=== PATIENT | female | born 1945 | race Two or more races ===

== ENCOUNTER 2023-06-09 15:18 | Observation (INO) | payer OTHER, SELFPAY ==
--- NOTE | ~2023-06-09 | XR_ITS ---
EXAMINATION: XR CHEST CLINICAL INFORMATION: Pain COMPARISON: None available. TECHNIQUE: 2 views of the chest were obtained. FINDINGS: Cardiac and mediastinal silhouette is within normal limits. Monitoring leads overlie the chest. There is hazy opacity in the medial aspect right lung base, which could reflect atelectasis or infiltrate. No dense consolidation in the left lung. Central vascular prominence without overt pulmonary edema. No significant effusion. No pneumothorax is seen. No acute osseous abnormality seen. Surgical clips in the upper abdomen. XR/XR chest 2V IMPRESSION: Hazy opacity in the medial aspect of the right lung base could reflect atelectasis or infiltrate.
--- NOTE | ~2023-06-09 | CT_ITS ---
EXAMINATION: CT HEAD WITHOUT CONTRAST CLINICAL INFORMATION: Headache. Numbness. COMPARISON: None available. TECHNIQUE: Contiguous axial imaging was performed from the skull base to vertex without intravenous administration of contrast. This CT examination was performed using dose optimization techniques as appropriate, variously including the following: *Automated exposure control *Adjustment of mA and/or kV according to patient size (this includes techniques or standardized protocols for targeted exams where dose is matched to indication/reason for exam; i.e. extremities or head) *Use of iterative reconstruction technique DLP: 652 mGy-cm FINDINGS: There is mild cerebral volume loss with prominence of the lateral and the third ventricles. The cortical sulci are widened appropriately. The fourth ventricle and basal cisterns are normally outlined. There is mild bilateral periventricular and central white matter diminished attenuation. There is no acute territorial defect, hemorrhage or midline shift. The extra-axial spaces are unremarkable. Calvarium: Intact. Maxilla facial sinuses and mastoids: Clear as visualized CT/CT head/brain wo IV con IMPRESSION: No acute intracranial process seen. Mild cerebral volume loss with chronic small vessel ischemic changes.
[2023-06-09 15:26] VITALS: BP 209/98; BP 217/100; PULSE 57; PULSE 60; RESP 16; TEMP 36.6; O2SAT 98; BMI 27.7
--- NOTE | 2023-06-09 16:41 | ECG_ITS ---
Test Reason : CHEST PAIN Blood Pressure : / mmHG Vent. Rate : 063 BPM Atrial Rate : 063 BPM P-R Int : 128 ms QRS Dur : 080 ms QT Int : 404 ms P-R-T Axes : 064 036 032 degrees QTc Int : 413 ms Normal sinus rhythm Normal ECG No previous ECGs available Referred By: Dominic Jo Electronically Signed By:Yadiel Espitia
--- NOTE | 2023-06-09 16:44 | ED_ITS ---
HPI - General Adult General Chief complaint: General Medical Stated complaint: HIGH BP 188/96,TINGLING L SIDE OF FACE PER EMS Time Seen by Provider: 06/09/23 16:21 Source: patient and RN notes reviewed Mode of arrival: ambulatory Limitations: no limitations History of Present Illness HPI narrative: 77-year-old female with past medical history significant for high blood pressure presents for evaluation of high blood pressure. Patient reports that she dropped her PCP office today because ?I had pain left side of my head and tingling on the left side my states which I have my blood pressure is high. ? Patient states that she tried to call her PCP but did not get any response so she drove to the office At the PCP observe blood pressure was 174/95 Patient has intermittent chest pain, currently she has no chest pain but did have some an ambulance prior to coming to the hospital She reports that she takes losartan 50 mg and metoprolol 100 mg daily for her blood pressure The only other medication she takes a baby aspirin Denies any leg swelling No other complaints or concerns at this time Related Data Allergies Allergy/AdvReac Type Severity Reaction Status Date / Time tramadol AdvReac Mild Nausea Verified 06/09/23 16:41 Review of Systems 2 Constitutional: Constitutional: Denies chills, Denies fever(s) and Reports headache(s) Eyes: Eyes: Denies blurry vision ENT: Reports headache(s) and Denies sore throat Cardiovascular: Cardiovascular: Reports chest pain and Denies dyspnea Respiratory: Respiratory: Denies cough and Denies dyspnea Gastrointestinal: Gastrointestinal: Denies abdominal pain, Denies nausea and Denies vomiting Musculoskeletal: Musculoskeletal: Denies back pain and Reports tingling Integumentary/Breasts: Skin/Breast: Denies rash Neurologic: Reports headache(s) and Reports tingling PMFSH Social History Social History Smoked in Last 30 Days: No Use of substances other than those prescribed or required for medical reasons: No Advance Directives: No Advance Directives Information Provided: No Physical Exam ED Vital Signs: Vital Signs - 24 hr 06/09/23 15:26 06/09/23 16:54 06/09/23 18:07 Temperature 97.9 F Pulse Rate 57 59 65 Respiratory Rate 16 16 16 Blood Pressure 217/100 H 212/95 H 164/92 H Pulse Oximetry 98 95 99 Oxygen Delivery Method Room Air Room Air Room Air BMI result Body Mass Index 27.7 Const General: healthy appearing, comfortable, no acute distress, alert and awake Nutritional Appearance: well nourished Orientation/consciousness: patient oriented x3 HENMT Head: Yes normocephalic and Yes atraumatic Eyes Eyelids: Yes eyelids normal Conjunctivae: conjunctivae normal Sclerae: sclerae normal Corneas: corneas normal Pupils: Equal, round and reactive pupils present EOM: EOMs intact bilaterally Neck Neck: Yes full ROM Resp Effort & Inspection: normal respiratory effort, able to speak in complete sentences and not labored Cardio Rate: regular rate Rhythm: regular rhythm GI Inspection: No distended Palpation (GI): Soft to palpation, not firm, nontender, no guarding and not rigid Skin General skin exam: elasticity normal Neuro General: patient oriented x3 Cranial nerves: Yes CN's II-XII intact bilaterally, Yes Equal, round and reactive pupils present and Yes Bilaterally intact EOM present Cognition (Neuro): normal cognition Extrem Other: Moving all extremities well without any obvious deformities Course Reevaluation(s) Reevaluation #1: After the patient's 2nd dose of labetalol, her blood pressure has improved to 164/92. She reports her left side headache has improved but is still present. Her labs are reviewed and reassuring. Plan to admit the patient for hypertensive urgency. Patient's chest x-ray shows concern for left basilar infiltrate versus atelectasis, she has no fever, no white count, no cough. Atelectasis is favored to be more likely Time: 18:18 Medications Administered Discontinued Medications Generic Name Dose Route Start Last Admin Trade Name Freq PRN Reason Stop Dose Admin Labetalol HCl 10 mg 06/09/23 16:41 06/09/23 16:53 Labetalol Hcl 100 Mg/20 Ml Vial IVPUSH 06/09/23 16:42 10 mg ONCE ONE Administration Labetalol HCl 20 mg 06/09/23 17:26 06/09/23 17:37 Labetalol Hcl 100 Mg/20 Ml Vial IVPUSH 06/09/23 17:27 20 mg ONCE ONE Administration Medical Decision Making Medical Decision Making MDM Narrative: 77-year-old female presents for evaluation of elevated blood pressure. She complains of a left-sided headache, she has no neuro deficits on exam. She currently denies any chest pain. Will check basic labs, EKG. Her blood pressure in the ER is currently 217/100. Will treat with labetalol 10 mg IV. Will continue to follow closely. Given that she has no active chest pain, abdominal pain or back pain, aortic aneurysm or dissection is favored to be less likely. Differential Diagnosis Differential Diagnoses: The differential diagnosis associated with the presentation includes Hypertensive urgency Hypertensive emergency Acute headache Migraine headache ACS less likely Admission/Observation Consideration of admission/observation: Escalation of care including admission/observation considered Patient presents for hypertensive urgency from her PCP office Lab Data MDM Lab Attestation statement: I reviewed the patient's lab results. No leukocytosis or anemia, normal platelet count. No electrolyte abnormalities 06/09/23 17:31 06/09/23 17:31 Labs: Lab Results 06/09/23 Range/Units 17:31 WBC 6.0 (4.8-10.8) X10*3/uL RBC 4.09 L (4.20-5.50) X10*6/uL Hgb 13.0 (12.0-16.0) g/dl Hct 39.5 (37.0-47.0) % MCV 96.6 (80.0-98.0) fL MCH 31.8 (27.0-33.0) pg MCHC 32.9 (31.0-35.0) g/dl RDW 13.5 (11.0-16.0) % Plt Count 254 (160-400) X10*3/uL MPV 9.5 (9.4-12.3) fL Immature Gran % (Auto) 0.7 H (0.0-0.4) % Neut % (Auto) 59.3 (45-73) % Lymph % (Auto) 31.8 (20-40) % [place] % (Auto) 7.0 (2-11) % Eos % (Auto) 1.0 (0-4) % Baso % (Auto) 0.2 (0-2) % Lymph # (Auto) 1.9 (1.2-4.9) X10*3/uL [place] # (Auto) 0.4 (0.1-1.2) X10*3/uL Eos # (Auto) 0.1 (0.0-0.4) X10*3/uL Baso # (Auto) 0.0 (0.0-0.2) X10*3/uL Abs Immat Gran (auto) 0.04 H (0.00-0.03) X10*3/uL Absolute Neuts (auto) 3.6 (2.0-8.3) x10*3/uL Absolute Nucleated RBC 0.000 (0.0-0.012) X10*3/uL Nucleated RBC % (auto) 0.0 (0.0-0.2) /100WBC PT 11.5 (11.1-13.3) SEC INR 0.9 (0.9-1.1) APTT 30.9 (26.0-36.4) SEC Sodium 140 (135-145) mmol/L Potassium 3.6 (3.3-5.1) mmol/L Chloride 105 (96-108) mmol/L Carbon Dioxide 28 (22-29) mmol/L Anion Gap 11 L (12-20) BUN 15 (9-16) mg/dL Creatinine 0.89 (0.5-1.4) mg/dL Estim Creat Clear Calc 42.4 Estimated GFR > 60 Random Glucose 88 (60-115) mg/dL Calcium 9.6 (8.4-10.2) mg/dL Magnesium 2.1 (1.6-2.6) mg/dL Total Bilirubin 0.7 (0.0-1.0) mg/dL AST 27 (5-31) U/L ALT 19 (0-31) U/L Alkaline Phosphatase 86 (39-117) U/L Troponin I High Sens < 2.7 (<3.5-17.0) ng/L B-Natriuretic Peptide 75 (<100) pg/mL Total Protein 7.1 (6.5-8.0) g/dL Albumin 4.2 (3.5-5.0) g/dL Lipase 12 (8-78) U/L Urine Color Yellow Urine Appearance Clear Urine pH 7.0 (5.0-9.0) Ur Specific [place] 1.010 (1.005-1.025) Urine Protein Negative (Neg-Trace) mg/dL Urine Glucose (UA) Negative (Negative) mg/dL Urine Ketones Negative (Negative) mg/dL Urine Blood Negative (Negative) Urine Nitrite Negative (Negative) Ur Leukocyte Esterase Negative (Negative) Urine RBC 0-2 (0-2) /HPF Urine WBC 0-5 (0-5) /HPF Ur Squamous Epith Cells 0-2 (0-2) /HPF Urine Bacteria None Seen (None Seen) Hyaline Casts 0-2 (0-2) /LPF Independent Interpretation I performed an independent interpretation of an: EKG and Plain X-Ray (Agree with Radiology interpretation) Interpretation: Normal sinus rhythm with a rate of 63 beats per minute. No ectopy or ischemic changes Radiology Impression Discussion of test interpretation with radiology: I have reviewed the radiologist's reading. (Hazy opacity in the medial aspect of the right lung base could reflect atelectasis or infiltrate) Discharge Plan Discharge Clinical Impression: Hypertensive urgency Patient Disposition: Admitted As Inpatient
[2023-06-09] MEDS: Labetalol HCL 100 MG/20 ML VIAL 10 MG IVPUSH (16:53)
[2023-06-09 16:54] VITALS: BP 212/95; PULSE 59; RESP 16; O2SAT 95
[2023-06-09] MEDS: Labetalol HCL 100 MG/20 ML VIAL 20 MG IVPUSH (17:37)
--- NOTE | 2023-06-09 17:38 | PC.NURSE ---
pt aox4, ambulatory with walker at home. Went to PCP today with high BP after taking it at home. (takes blood pressure meds, didn't take them today bc usually takes at night). labs and ekg done. labetalol 10mg given, BP remained high 200/91. EL Leal notified and another dose of labetalol given now (20mg). results pending.
[2023-06-09 17:41] LABS: MANUAL DIFF FLAG NO
[2023-06-09 17:45] LABS: Appearance Urine Clear; Color Urine Yellow; Glucose Urine UA Negative (Negative); Leukocyte Esterase Urine Negative (Negative); Nitrite Urine Negative (Negative); Urine Blood Negative (Negative); Urine Ketones Negative (Negative); Urine Protein Negative (Neg-Trace)
[2023-06-09 17:49] LABS: Bacteria Urine None Seen (None Seen); Hyaline Casts Urine 0-2 /LPF (0-2); RBC Urine 0-2 /HPF (0-2); Squamous Epithelial Cell Urine 0-2 /HPF (0-2); WBC Urine 0-5 /HPF (0-5)
[2023-06-09 17:53] LABS: INTERNATIONAL NORM RATIO 0.9 (0.9-1.1); Prothrombin Time 11.5 SEC (11.1-13.3)
[2023-06-09 17:55] LABS: Partial Thromboplastin Time 30.9 SEC (26.0-36.4)
[2023-06-09 17:59] LABS: Alanine Aminotransferase 19 U/L (0-31); Albumin Level 4.2 g/dL (3.5-5.0); Alkaline Phosphatase 86 U/L (39-117); Anion Gap 11 (12-20); Aspartate Amino Transferase 27 U/L (5-31); Bilirubin Total 0.7 mg/dL (0.0-1.0); Blood Urea Nitrogen 15 mg/dL (9-16); Calcium 9.6 mg/dL (8.4-10.2); Carbon Dioxide 28 mmol/L (22-29); Chloride 105 mmol/L (96-108); Creatinine Clr Calc Pharmacy 42.4; Estimated Glomerular Filt Rate > 60; Glucose Random 88 mg/dL (60-115); Lipase 12 U/L (8-78); Magnesium 2.1 mg/dL (1.6-2.6); Potassium 3.6 mmol/L (3.3-5.1); Sodium 140 mmol/L (135-145); Total Protein 7.1 g/dL (6.5-8.0)
[2023-06-09 18:01] LABS: Basophils Percent Auto 0.2 % (0-2); Eosinophils Absolute Auto 0.1 X10*3/uL (0.0-0.4); Hematocrit 39.5 % (37.0-47.0); Imm Gran Abs Auto 0.04 X10*3/uL (0.00-0.03); Imm Gran Pct Auto 0.7 % (0.0-0.4); Lymphocytes Absolute Auto 1.9 X10*3/uL (1.2-4.9); Lymphocytes Percent Auto 31.8 % (20-40); Mean Corpuscular HGB Conc 32.9 g/dl (31.0-35.0); Mean Corpuscular Hemoglobin 31.8 pg (27.0-33.0); Mean Corpuscular Volume 96.6 fL (80.0-98.0); Mean Platelet Volume 9.5 fL (9.4-12.3); Monocytes Absolute Auto 0.4 X10*3/uL (0.1-1.2); Neutrophils Absolute Auto 3.6 x10*3/uL (2.0-8.3); Neutrophils Percent Auto 59.3 % (45-73); Platelet Count 254 X10*3/uL (160-400); Red Blood Count 4.09 X10*6/uL (4.20-5.50); Red Cell Distribution Width 13.5 % (11.0-16.0)
[2023-06-09 18:03] LABS: B Type Natriuretic Peptide 75 pg/mL (<100)
[2023-06-09 18:07] VITALS: BP 164/92; PULSE 65; RESP 16; O2SAT 99
[2023-06-09 18:09] LABS: Troponin-I High Sensitivity < 2.7 ng/L (<3.5-17.0)
--- NOTE | 2023-06-09 18:11 | PC.NURSE ---
repeat BP after second labetalol dose improved to 164/92
--- NOTE | 2023-06-09 19:28 | HE.PHANOTE ---
Patient reported all medications. Will have RPH in the morning confirm which metoprolol patient is on as well as if there are any missed medications. Yi Peters, ElisD
--- NOTE | 2023-06-09 19:30 | PM.IMHP ---
History of Present Illness Date of Service: 06/09/23 Attending physician on admission: Marin Martinez Chief Complaint: Headache, high BP Pt is a 77-year-old female with a PMH significant for?HTN, mild intermittent asthma, neuropathy/restless leg syndrome, osteoarthritis, and sciatica who presents to the ED from PCP office for evaluation of hypertension. Patient reports a long history of high blood pressure and states she often monitors at home, sometimes taking pressures twice a day though other times will go 2-3 days in between measurements. Systolic BP often high in the 150s to 180s range. Patient took her blood pressure 2 days ago and it was 171 or 79. Today her 1st measurement was 179/88 and then repeat a few hours later was 153/106. Patient became worried because her diastolic pressure was over 100 so called her PCP but was placed on hold. Patient then drove to PCP office and they measured her BP there and found to be 193/103 and sent her to the ED for further evaluation. Patient also complains of left-sided headache and left-sided facial numbness and feeling ?a little funny?. Patient denies dysarthria, dysphagia, or any facial droop. No hemiparesis. She says she takes her medications regularly; denies being on any specific diet. Patient reports 4-5 previous episodes with similar symptoms over the past couple of years; she states these occur when she has high blood pressure. Patient previously presented to [facility] ED 4-5 months ago with?high blood pressure and similar symptoms. Was kept overnight and her losartan was increased from 50 mg to 100 mg and metoprolol was increased from 25 mg to 50 mg daily. No lightheadedness, dizziness. Denies acute vision changes. No shortness of breath or cough. Denies fever, chills, nausea, vomiting, abdominal pain. No chest pain/pressure, palpitations. In the ED pt was hypertensive as high as 217/100, otherwise vital signs WNL. Labs were largely unremarkable. No leukocytosis. Stable H&H. Coags WNL. Electrolytes WNL. Hepatic function WNL. Troponins negative. BNP WNL. UA negative for UTI. CXR showed hazy opacity in the medial aspect of the right lung base that could reflect atelectasis or infiltrate. EKG demonstrated normal sinus rhythm without evidence of significant ST elevations or depressions. Pt was treated with labetalol 10 mg IV and 20 mg IV. Pt will be admitted to the hospital under observation for treatment and further evaluation of hypertensive urgency. Review of Systems Review of Systems: Left-sided headache Left-sided facial numbness Denies acute vision changes No chest pain/pressure, palpitations Denies shortness of breath No lightheadedness, dizziness Denies fever, chills, nausea, vomiting, abdominal pain [facility] Medical History (Updated 06/09/23 @ 20:49 by EL Stafford) Mild intermittent asthma Neuropathy Osteoarthritis Sciatica HTN (hypertension) Social History Smoked in Last 30 Days: No Use of substances other than those prescribed or required for medical reasons: No Advance Directives: No Advance Directives Information Provided: No Meds Allergies Allergy/AdvReac Type Severity Reaction Status Date / Time tramadol AdvReac Mild Nausea Verified 06/09/23 16:41 Home Medications Medication Instructions Recorded Confirmed Last Taken Type aspirin 81 mg chewable tablet 81 mg PO DAILY 06/09/23 06/09/23 Unknown History gabapentin 600 mg tablet 1,200 mg PO TID 06/09/23 06/09/23 Unknown History losartan 100 mg tablet 100 mg PO BEDTIME 06/09/23 06/09/23 Unknown History metoprolol succinate 50 mg 50 mg PO DAILY 06/09/23 Unknown History tablet,extended release 24 hr Physical Exam Vital Signs and Narrative: Vital Signs: Last Vital Signs Temp 97.9 F 06/09/23 15:26 Pulse 65 06/09/23 18:07 Resp 16 06/09/23 18:07 BP 164/92 H 06/09/23 18:07 Pulse Ox 99 06/09/23 18:07 O2 Del Method Room Air 06/09/23 18:07 BMI result Body Mass Index 27.7 Constitutional: Alert, in no acute distress. Mental Status: Oriented to person, place and time. Eyes: Pupils are equal, round, and reactive to light. Ear, Nose, and Throat: Oropharynx clear, mucous membranes moist. Ears and nose without deformities. Trachea midline. Respiratory: Clear to auscultation bilaterally. No wheezing, rales, or rhonchi. Cardiovascular: S1, S2 regular. No murmurs, rubs, or gallops. Gastrointestinal: Abdomen soft, non-tender, non-distended. Normal bowel sounds. Neurologic: Cranial nerves II-XII are grossly intact bilaterally. No focal neurological deficits. Moves all extremities spontaneously. Skin: Warm, dry. Musculoskeletal: No cyanosis or clubbing. Extremities: No edema. Psychiatric: Normal mood and affect. Results Labs 06/09/23 17:31 12 17:31 Labs: Laboratory Results - last 24 hr 06/09/23 17:31 MCV 96.6 MCH 31.8 MCHC 32.9 RDW 13.5 Plt Count 254 MPV 9.5 Immature Gran % (Auto) 0.7 H Neut % (Auto) 59.3 Lymph % (Auto) 31.8 [place] % (Auto) 7.0 Eos % (Auto) 1.0 Baso % (Auto) 0.2 Lymph # (Auto) 1.9 [place] # (Auto) 0.4 Eos # (Auto) 0.1 Baso # (Auto) 0.0 Abs Immat Gran (auto) 0.04 H Absolute Neuts (auto) 3.6 Absolute Nucleated RBC 0.000 Nucleated RBC % (auto) 0.0 PT 11.5 INR 0.9 APTT 30.9 Anion Gap 11 L Estim Creat Clear Calc 42.4 Estimated GFR > 60 Random Glucose 88 Calcium 9.6 Magnesium 2.1 Total Bilirubin 0.7 AST 27 ALT 19 Alkaline Phosphatase 86 B-Natriuretic Peptide 75 Total Protein 7.1 Albumin 4.2 Lipase 12 Urine Color Yellow Urine Appearance Clear Urine pH 7.0 Ur Specific [place] 1.010 Urine Protein Negative Urine Glucose (UA) Negative Urine Ketones Negative Urine Blood Negative Urine Nitrite Negative Ur Leukocyte Esterase Negative Urine RBC 0-2 Urine WBC 0-5 Ur Squamous Epith Cells 0-2 Urine Bacteria None Seen Hyaline Casts 0-2 Imaging Radiologist's Impressions: Impressions Chest X-Ray 06/09/23 17:13 IMPRESSION: Hazy opacity in the medial aspect of the right lung base could reflect atelectasis or infiltrate. Assessment and Plan (1) Hypertensive urgency: Status: Acute Plan Pt is a 77-year-old female with a PMH significant for?HTN, mild intermittent asthma, neuropathy/restless leg syndrome, osteoarthritis, and sciatica who presents to the ED from PCP office for evaluation of hypertension. Pt will be admitted to the hospital under observation for treatment and further evaluation of hypertensive urgency. Hypertensive urgency BP as high as 217/100 in ED, patient with left-sided headache and facial numbness/tingling Patient with long history of uncontrolled HTN 4-5 previous episodes headache and facial numbness with high blood pressure, 1 previous hospital admission Given labetalol IV in ED to good effect; currently 164/92 Will continue home antihypertensives Check BP q4hr Will consider adjusting home medication upon discharge Neuropathy/sciatica Continue gabapentin Mild intermittent asthma Not in acute exacerbation Patient not on any home inhalers DNR/DNI Attending:?Dr. Martinez DVT Prophylaxis: Heparin Patient will be admitted to the hospital under observation treatment and further evaluation of hypertensive urgency. Quality Stroke Does the patient have a stroke diagnosis?: No VTE Prior VTE?: No VTE Risk Level:: Medical - moderate - high VTE Device Contraindication: Treatment Not Indicated VTE Drug Contraindication: N/A - Med Ordered
--- NOTE | 2023-06-09 20:02 | PC.NURSE ---
took care from ELHAM Santizo, pt in with provider plan is for admission at this time.
--- NOTE | 2023-06-09 20:53 | PC.NURSE ---
blood pressure elevated notified provider, awaiting new orders.
[2023-06-09] MEDS: Metoprolol Succinate ER 50 MG TAB.ER.24H PO (20:59)
[2023-06-09] MEDS: Losartan Potassium 50 MG TABLET 100 MG PO (20:59)
[2023-06-09] MEDS: Gabapentin 600 MG TABLET 1200 MG PO (20:59)
[2023-06-09] MEDS: Acetaminophen 325 MG TABLET 975 MG PO (20:59)
[2023-06-09] MEDS: Heparin Sodium,Porcine 5,000 UNIT/ML VIAL 5000 UNIT SUBCUT (21:00)
[2023-06-09 21:27] VITALS: BP 166/75; PULSE 65; RESP 18; O2SAT 95
[2023-06-10] VITALS (8 sets, daily range): BP systolic 125–154; BP diastolic 66–81; PULSE 61–97; RESP 15–20; TEMP 36.1–36.8; O2SAT 95–98; BMI 25.5
--- NOTE | 2023-06-10 00:18 | PC.NURSE ---
pt a&o, will need assistance due to being unsteady on her feet, Headache has improved after being medicated, Report called to receiving unit.
[2023-06-10] MEDS: 0.9 % Sodium Chloride Flush 3 ML SYRINGE IVFLUSH ×4 (00:32→21:49)
[2023-06-10] MEDS: Acetaminophen 325 MG TABLET 650 MG PO ×2 (05:56→21:49)
[2023-06-10] MEDS: Aspirin 81 MG TAB.CHEW PO (08:26)
[2023-06-10] MEDS: Gabapentin 600 MG TABLET 1200 MG PO ×3 (08:27→21:49)
[2023-06-10] MEDS: Heparin Sodium,Porcine 5,000 UNIT/ML VIAL 5000 UNIT SUBCUT ×2 (08:27→21:49)
--- NOTE | 2023-06-10 08:54 | MHC.CM.PN ---
Anastacia 06/10/23, Pt lives with family, she has home health aid services from [employer], an aid who helps her with personal care and cleaning. She has a walker and cane at home. HCP discussed, she declines to complete one. Her son will pick her up upon DC. PCP is Kelvin Espinoza. CM will follow and assist with DC planning.
--- NOTE | 2023-06-10 09:34 | PHA.MEDREC ---
Pharmacy Consult ? Medication Reconciliation Pharmacy has completed the medication reconciliation. Called [facility] pharmacy [phone], spoke to Danna and confirmed patient's medication list (especially metoprolol ER 50mg qd and flovent 110mcg).
[2023-06-10 15:00] LABS: Cholesterol 172 mg/dL (<200); HDL Cholesterol 47 mg/dL (>40); LDL Cholesterol Calculated 104 mg/dL (<100); Triglycerides 109 mg/dL (<150)
--- NOTE | 2023-06-10 16:12 | HO.PM.IMPN ---
Subjective Subjective Date of Service: 06/10/23 Interval History: Uncontrolled hypertension, numbness Review of Systems She says the numbness the seems to be improving, blood pressure is also slowly improving Physical Exam Vital Signs: Vital Signs: Last Vital Signs Temp 98.2 F 06/10/23 15:34 Pulse 66 06/10/23 15:34 Resp 20 06/10/23 15:34 BP 130/67 06/10/23 15:34 Pulse Ox 98 06/10/23 15:34 O2 Del Method Room Air 06/10/23 15:34 BMI result Body Mass Index 25.5 Appearance: Alert.? Oriented X3.? not in distress. cvs: rrr, [id number] . res: clear to auscultation ,no rhonchii or wheezing abd: no rebound or guarding ,nt, bs present. ext pulses present , no cyanosis . neuro: axo3 , nonfocal. Objective Data Active Medications Acetaminophen (Acetaminophen 325 Mg Tablet) 650 mg PO Q6H PRN PRN Reason: Pain, Mild (Pain Scale 1-3) Last Admin: 06/10/23 05:56 Dose: 650 mg Documented By: MELLISA Aspirin (Aspirin 81 Mg Tab.Chew) 81 mg PO DAILY [facility] Last Admin: 06/10/23 08:26 Dose: 81 mg Documented By: NITZA Benzonatate (Benzonatate 100 Mg Capsule) 100 mg PO TID PRN PRN Reason: Cough Docusate Sodium (Docusate Sodium 100 Mg Capsule) 100 mg PO DAILY PRN PRN Reason: Constipation Gabapentin (Gabapentin 600 Mg Tablet) 1,200 mg PO TID [facility] Last Admin: 06/10/23 15:57 Dose: 1,200 mg Documented By: NITZA Heparin Sodium (Porcine) (Heparin Sodium,Porcine 5,000 Unit/Ml Vial) 5,000 unit SUBCUT Q12H [facility] Last Admin: 06/10/23 08:27 Dose: 5,000 unit Documented By: NITZA Losartan Potassium (Losartan Potassium 50 Mg Tablet) 100 mg PO BEDTIME [facility]; Protocol Last Admin: 06/09/23 20:59 Dose: 100 mg Documented By: CLARKE Melatonin (Melatonin 3 Mg Tablet) 6 mg PO BEDTIME PRN PRN Reason: Insomnia Metoprolol Succinate (Metoprolol Succinate Er 50 Mg Tab.Er.24h) 50 mg PO BEDTIME JULIA; Protocol Last Admin: 06/09/23 20:59 Dose: 50 mg Documented By: CLARKE Ondansetron HCl (Ondansetron Hcl 4 Mg/2 Ml Vial) 4 mg IVPUSH Q8H PRN PRN Reason: Nausea and Vomiting Sodium Chloride (0.9 % Sodium Chloride Flush 3 Ml Syringe) 3 ml IVFLUSH QSHIFT JULIA Last Admin: 06/10/23 15:56 Dose: 3 ml Documented By: NITZA Labs 06/09/23 17:31 06/09/23 17:31 Labs: Laboratory Results - last 24 hr 06/09/23 17:31 MCV 96.6 MCH 31.8 MCHC 32.9 RDW 13.5 Plt Count 254 MPV 9.5 Immature Gran % (Auto) 0.7 H Neut % (Auto) 59.3 Lymph % (Auto) 31.8 [place] % (Auto) 7.0 Eos % (Auto) 1.0 Baso % (Auto) 0.2 Lymph # (Auto) 1.9 [place] # (Auto) 0.4 Eos # (Auto) 0.1 Baso # (Auto) 0.0 Abs Immat Gran (auto) 0.04 H Absolute Neuts (auto) 3.6 Absolute Nucleated RBC 0.000 Nucleated RBC % (auto) 0.0 PT 11.5 INR 0.9 APTT 30.9 Anion Gap 11 L Estim Creat Clear Calc 42.4 Estimated GFR > 60 Random Glucose 88 Calcium 9.6 Magnesium 2.1 Total Bilirubin 0.7 AST 27 ALT 19 Alkaline Phosphatase 86 B-Natriuretic Peptide 75 Total Protein 7.1 Albumin 4.2 Triglycerides 109 Cholesterol 172 LDL Cholesterol, Calc 104 H HDL Cholesterol 47 Lipase 12 Urine Color Yellow Urine Appearance Clear Urine pH 7.0 Ur Specific [place] 1.010 Urine Protein Negative Urine Glucose (UA) Negative Urine Ketones Negative Urine Blood Negative Urine Nitrite Negative Ur Leukocyte Esterase Negative Urine RBC 0-2 Urine WBC 0-5 Ur Squamous Epith Cells 0-2 Urine Bacteria None Seen Hyaline Casts 0-2 Assessment and Plan (1) Hypertensive urgency: Status: Acute Plan 77-year-old female with a PMH significant for?HTN, mild intermittent asthma, neuropathy/restless leg syndrome, osteoarthritis, and sciatica who presents to the ED from PCP office for evaluation of hypertension. Pt will be admitted to the hospital under observation for treatment and further evaluation of hypertensive urgency. Hypertensive urgency BP as high as 217/100 in ED, patient with left-sided headache ,facial numbness improved Patient with long history of uncontrolled HTN 4-5 previous episodes headache and facial numbness with high blood pressure, [address] head -pending Will continue home antihypertensives Check BP q4hr Will consider adjusting home medication upon discharge Neuropathy/sciatica Continue gabapentin Mild intermittent asthma Not in acute exacerbation Patient not on any home inhalers DNR/DNI DVT Prophylaxis: Heparin admitted to the hospital under observation treatment and further evaluation of hypertensive urgenc and workup. Quality Stroke Does the patient have a stroke diagnosis?: No VTE Prior VTE?: No VTE Risk Level:: Medical - moderate - high VTE Device Contraindication: Treatment Not Indicated VTE Drug Contraindication: N/A - Med Ordered
[2023-06-10] MEDS: Losartan Potassium 50 MG TABLET 100 MG PO (21:49)
[2023-06-10] MEDS: Metoprolol Succinate ER 50 MG TAB.ER.24H PO (21:49)
[2023-06-11 04:00] VITALS: BP 140/65; PULSE 64; RESP 15; TEMP 36.8; O2SAT 96
[2023-06-11 07:59] VITALS: BP 155/79; PULSE 62; RESP 18; TEMP 36.4; O2SAT 96
--- NOTE | 2023-06-11 08:10 | P.DS_ITS ---
DS: Providers Provider Date of Service: 06/11/23 Date of admission: 06/09/23 20:40 Date of discharge: 06/11/23 Primary care physician: Unknown Physician DS: Diagnosis Discharge Diagnosis (1) Hypertensive urgency: Status: Acute DS: Summary Hospital Course Hospital Course: 77-year-old female with a PMH significant for?HTN, mild intermittent asthma, neuropathy/restless leg syndrome, osteoarthritis, and sciatica who presents to the ED from PCP office for evaluation of hypertension. Patient reports a long history of high blood pressure and states she often monitors at home, sometimes taking pressures twice a day though other times will go 2-3 days in between measurements. Systolic BP often high in the 150s to 180s range. Patient took her blood pressure 2 days ago and it was 171 or 79. Today her 1st measurement was 179/88 and then repeat a few hours later was 153/106. Patient became worried because her diastolic pressure was over 100 so called her PCP but was placed on hold. Patient then drove to PCP office and they measured her BP there and found to be 193/103 and sent her to the ED for further evaluation. Patient also complains of left-sided headache and left-sided facial numbness and feeling ?a little funny?. Patient denies dysarthria, dysphagia, or any facial droop. No hemiparesis. She says she takes her medications regularly; denies being on any specific diet. Patient reports 4-5 previous episodes with similar symptoms over the past couple of years; she states these occur when she has high blood pressure. Patient previously presented to [facility] ED 4-5 months ago with?high blood pressure and similar symptoms. Was kept overnight and her losartan was increased from 50 mg to 100 mg and metoprolol was increased from 25 mg to 50 mg daily. No lightheadedness, dizziness. Denies acute vision changes. No short ness of breath or cough. Denies fever, chills, nausea, vomiting, abdominal pain. No chest pain/pressure, palpitations. In the ED pt was hypertensive as high as 217/100, otherwise vital signs WNL. L abs were largely unremarkable. No leukocytosis. Stable H&H. Coags WNL. Electrolytes WNL. Hepatic function WNL. Troponins negative. BNP WNL. UA negative for UTI. CXR showed hazy opacity in the medial aspect of the right lung base that could reflect atelectasis or infiltrate. EKG demonstrated normal sinus rhythm without evidence of significant ST elevations or depressions. Pt was treated with labetalol 10 mg IV and 20 mg IV. Pt will be admitted to the hospital under observation for treatment and further evaluation of hypertensive urgency. Hospital course: Patient was admitted because of uncontrolled hypertension and and mild facial numbness: Patient probably has these symptoms due to uncontrolled high blood pressure, CT head was done-no acute disease except chronic small vessel ischemic changes. she is already on asa, Lipid panel reviewed-LDL is borderline (high), patient said she is aware about elevated LDL and she is having discussion outpatient with her PCP for further use of statin. She will follow-up with her PCP. Above management discussed with the patient in detail length with fire investigation manager. Assessment and plan coordination time spent 50 minute. Time Attestation Discharge coordination time: Greater than 30 minutes Quality: Safe Use of Opioids Does Pt have an Active Cancer Diagnosis on the Problem List?: No Quality: Stroke Does the patient have a stroke diagnosis?: No Physical Exam Vital Signs: Vital Signs: Last Vital Signs Temp 97.6 F 06/11/23 07:59 Pulse 62 06/11/23 07:59 Resp 18 06/11/23 07:59 BP 155/79 H 06/11/23 07:59 Pulse Ox 96 06/11/23 07:59 O2 Del Method Room Air 06/11/23 07:59 BMI result Body Mass Index 25.5 Appearance: Alert.? Oriented X3.? not in distress.? Eyes: Pupils equal, round and reactive to light.? Sclera nonicteric.? ENT: Pharynx normal.? Moist mucous membranes. cvs: rrr, [id number]. res: clear to auscultation ,no rhonchii or wheezing abd: no rebound or guarding ,nt, bs present. ext pulses present , no cyanosis . neuro: axo3 , nonfocal. DS: Data Data Completed and Pending Labs on day of discharge: Laboratory Results - last 24 hr 06/09/23 17:31 Triglycerides 109 Cholesterol 172 LDL Cholesterol, Calc 104 H HDL Cholesterol 47 Imaging Chest x-ray: Radiologist's impression: ITS Impressions Chest X-Ray 06/09/23 17:13 IMPRESSION: Hazy opacity in the medial aspect of the right lung base could reflect atelectasis or infiltrate. Head CT 06/10/23 15:22 IMPRESSION: No acute intracranial process seen. Mild cerebral volume loss with chronic small vessel ischemic changes. Discharge Plan Discharge Anticipated Discharge Date/Time: 06/10/23 14:17 Patient Disposition: Home, Self-Care Discharge Diagnosis: htn uncontrolled Referrals: Physician,Unknown J [Physician] - 1 Week Discharge Medications: Continued gabapentin 600 mg Tablet 1,200 mg PO TID metoprolol succinate 50 mg Tablet Extended Release 24 Hr 50 mg PO DAILY aspirin 81 mg Tablet,Chewable 81 mg PO DAILY losartan 100 mg Tablet 100 mg PO BEDTIME fluticasone propionate [Flovent HFA] 110 mcg/actuation Hfa Aerosol Inhaler 1 puff INHALATION BID Discharge Orders: Discharge Order (Routine); Ordered 06/11/23 Ordered By: Viri Burrell Diet: Advance to usual diet Activity on Discharge: As tolerated Stand Alone Forms: Patient Portal Discharge page Care Plan Goals: Patient was admitted because of uncontrolled hypertension and and mild facial numbness: Patient probably has these symptoms due to uncontrolled high blood pressure, CT head was done-no acute disease except chronic small vessel ischemic changes. she is already on asa, Lipid panel reviewed-LDL is borderline (high)- consider repeating lipid panel out patiently, low fat diet-if the LDL elevated on repeated then can start outpatient statin as per PCP. Above management discussed with the patient in detail length with fire investigation manager. Health Concerns: As above. Plan of Treatment: As above. Assessment: As above. Discharge Date/Time: 06/11/23 14:14
--- NOTE | 2023-06-11 08:31 | MHC.CM.PN ---
Pt has been medically cleared for DC, she will return home via family and resume her home care services.
[2023-06-11] MEDS: Gabapentin 600 MG TABLET 1200 MG PO (08:35)
[2023-06-11] MEDS: Aspirin 81 MG TAB.CHEW PO (08:35)
[2023-06-11] MEDS: Acetaminophen 325 MG TABLET 650 MG PO (08:37)
[2023-06-11 12:00] VITALS: BP 184/92; PULSE 69; RESP 18; TEMP 36.4; O2SAT 98
== END 2023-06-11 14:14 | disposition home or self-care (01) ==
LOC: HO.ED 18:24 → HO.EDOVER 20:47 → HO.IMC 23:51
PROVIDERS: Physician Assistant; Admitting Provider Student in an Organized Health Care Education/Training Program; Emergency Provider Internal Medicine; PCP Internal Medicine; Visit Provider Internal Medicine
DX: I16.0 Hypertensive urgency (principal); I10 Essential (primary) hypertension; R51.9 Headache, unspecified; J45.20 Mild intermittent asthma, uncomplicated; R20.0 Anesthesia of skin; G62.9 Polyneuropathy, unspecified; M54.30 Sciatica, unspecified side; R91.8 Other nonspecific abnormal finding of lung field; R07.9 Chest pain, unspecified; Z79.899 Other long term (current) drug therapy
CPT/HCPCS: 36415; 70450; 71046; 80053; 80061; 81001; 83690; 83735; 83880; 84484; 85025; 85610; 85730; 93005; 96372; 96374; 96376; 99222; 99285; J1644; J1920

== ENCOUNTER → 2023-06-09 16:41 | Outpatient (BNV) | payer OTHER, SELFPAY | PROVIDERS: Admitting Provider Student in an Organized Health Care Education/Training Program; Emergency Provider Internal Medicine; Visit Provider Internal Medicine Cardiovascular Disease | DX: R07.9 Chest pain, unspecified (principal) | CPT/HCPCS: 93010 ==

== ENCOUNTER → 2023-06-09 20:40 | Outpatient (BNV) | payer OTHER, SELFPAY | PROVIDERS: Admitting Provider Student in an Organized Health Care Education/Training Program; Emergency Provider Internal Medicine; Visit Provider Internal Medicine | DX: I16.0 Hypertensive urgency (principal) | CPT/HCPCS: 99222; 99231; 99239 ==

== ENCOUNTER 2024-08-06 14:56 | Emergency (ER) | payer OTHER, SELFPAY ==
--- NOTE | ~2024-08-06 | XR_ITS ---
CLINICAL HISTORY: cough, SOB Chest Radiographs, 2 views Comparison: 06/09/23 Findings: No cardiomegaly. Normal mediastinal contours. No pneumothorax. No opacity. No pleural effusion. Normal upper abdomen. No acute fracture. Impression: No acute findings. This document has been electronically signed by: Elaine Oconnor MD on 08/06/2024 17:03:02
[2024-08-06 15:38] VITALS: BP 101/54; PULSE 66; RESP 18; TEMP 36.1; O2SAT 97; BMI 26.0
--- NOTE | 2024-08-06 15:51 | ECG_ITS ---
Test Reason : SOB Blood Pressure : */* mmHG Vent. Rate : 63 BPM Atrial Rate : 63 BPM P-R Int : 148 ms QRS Dur : 78 ms QT Int : 396 ms P-R-T Axes : 52 29 48 degrees QTcB Int : 405 ms Normal sinus rhythm Low voltage QRS Borderline ECG When compared with ECG of 09-Jun-2023 17:20, No significant change was found Referred By: Mely Cook Electronically Signed By: JAVAD BROWN MD
--- NOTE | 2024-08-06 15:52 | ED.URI ---
HPI - URI/Sore Throat General Chief Complaint: Upper Respiratory Symptoms Stated Complaint: cough Time Seen by Provider: 08/06/24 17:22 Source: patient Mode of arrival: ambulatory Limitations: no limitations History of Present Illness ED Provider: kate tejada NP HPI Narrative: Patient is a 79-year-old female who presents emergency department for evaluation. Reports 1 week of productive cough, shortness of breath, dyspnea on exertion. Admits to a history of asthma. Progressively worsening symptoms. Denies fevers, chills, headache, dizziness, neck pain, neck stiffness, chest pain, sore throat, nausea, vomiting, abdominal pain, numbness or tingling of the extremities, genitourinary symptoms. Related Data Home Medications ?Medication ?Instructions ?Recorded ?Confirmed aspirin 81 mg chewable tablet 81 mg PO DAILY 06/09/23 06/09/23 gabapentin 600 mg tablet 1,200 mg PO TID 06/09/23 06/09/23 losartan 100 mg tablet 100 mg PO BEDTIME 06/09/23 06/09/23 metoprolol succinate 50 mg 50 mg PO DAILY 06/09/23 06/10/23 tablet,extended release 24 hr fluticasone propionate 110 1 puff inhalation BID 06/10/23 06/10/23 mcg/actuation HFA aerosol inhaler (Flovent HFA) Previous Rx's ?Medication ?Instructions ?Recorded prednisone 20 mg tablet 40 mg (2 x 20 mg) PO DAILY #8 tabs 08/06/24 Allergies Allergy/AdvReac Type Severity Reaction Status Date / Time tramadol AdvReac Mild Nausea Verified 08/06/24 15:42 Review of Systems Review of Systems: Yes all other systems are reviewed and are negative [facility] Past Medical History Attestation statement: The following information was validated with the patient. Source: old records reviewed Medical History Mild intermittent asthma Neuropathy Osteoarthritis Sciatica HTN (hypertension) Social History Social History Patient Tobacco Use Status: Never used Tobacco service: No Physical Exam Vital Signs: Vital Signs: Last Vital Signs Temp 97.0 F 08/06/24 15:38 Pulse 66 08/06/24 15:38 Resp 18 08/06/24 15:38 BP 101/54 L 08/06/24 15:38 Pulse Ox 97 08/06/24 15:38 O2 Del Method Room Air 08/06/24 15:38 BMI result Body Mass Index 26.0 Appearance: Alert.?Oriented to person, place and time. No acute distress.?Normal affect. Eyes: Pupils equal, round and reactive to light.? ENT: TM normal bilaterally. Pharynx normal.?? Neck: Normal inspection.? Neck supple.??No cervical adenopathy CVS: Heart sounds normal. Normal heart rate and rhythm.? Pulses normal.?? Respiratory: No respiratory distress.? Lung sounds with mild inspiratory and expiratory wheezing bilaterally. No stridor. Abdomen: Soft and non-tender. Normoactive bowel sounds. Skin: Skin warm and dry.? Normal skin color.? ? Extremities: No lower extremity edema.? Neuro: Moves all extremities spontaneously. Sensation intact bilaterally. No motor deficits. Ambulates with normal steady gait. Course Course Course Narrative: This is an RME performed by Kate Tejada CNP: Additional HPI, ROS, PE not included below will be deferred to primary provider. Plan: CXR, EKG, viral serologies Medical Decision Making Medical Decision Making MDM Narrative: Patient is a 79-year-old female past medical history of asthma, hypertension, sciatica, osteoarthritis, presenting for evaluation of shortness of breath and cough as per HPI. COVID-19/RSV testing is negative. Influenza a testing is positive. Given the duration of onset since her illness, she would be outside of the window for initiating Tamiflu. She has some diffuse expiratory wheezing on evaluation but she is afebrile without tachycardia tachypnea or hypoxia no respiratory distress or accessory muscle usage. Provided with albuterol inhaler in the emergency department; 6 puffs with good improvement sent prescription for inhaler to pharmacy in addition to a short course of prednisone. Ambulatory O2 trial without hypoxia or notable dyspnea. CXR was obtained in his without consolidation or infiltrate to suggest pneumonia. CBC revealing no leukocytosis anemia or thrombocytopenia. No electrolyte derangement. No KIERSTEN. LFTs overall unremarkable. BMP within normal range not consistent with CHF exacerbation clinically without signs of volume overload. EKG revealing normal sinus rhythm ventricular rate 63, QTC 405, no ST elevation. Speaking clear full sentences, ambulatory with steady gait. Discussed additional conservative treatment including rest, hydration, Tylenol/ibuprofen as needed for fever and body aches, saline nasal spray, humidifier, [id number] cold medication. Advised to follow-up with primary care provider as needed, discussed reasons to return back to the emergency department. All questions were answered. Patient discharged home in stable condition. Differential Diagnosis Differential Diagnoses: The differential diagnosis associated with the presentation includes ( See narrative above) Admission/Observation Consideration of admission/observation: Escalation of care including admission/observation considered ( see narrative above) Lab Data MDM Lab Attestation statement: I reviewed the patient's lab results. ( see narrative above) 08/06/24 16:14 08/06/24 16:14 Labs: Lab Results 08/06/24 Range/Units 16:14 WBC 4.3 L (4.8-10.8) X10*3/uL RBC 3.97 L (4.20-5.50) X10*6/uL Hgb 12.9 (12.0-16.0) g/dl Hct 37.2 (37.0-47.0) % MCV 93.7 (80.0-98.0) fL MCH 32.5 (27.0-33.0) pg MCHC 34.7 (31.0-35.0) g/dl RDW 13.2 (11.0-16.0) % Plt Count 237 (160-400) X10*3/uL MPV 9.6 (9.4-12.3) fL Immature Gran % (Auto) 0.0 (0.0-0.4) % Neut % (Auto) 49.6 (45-73) % Lymph % (Auto) 36.6 (20-40) % [place] % (Auto) 11.3 H (2-11) % Eos % (Auto) 2.3 (0-4) % Baso % (Auto) 0.2 (0-2) % Lymph # (Auto) 1.6 (1.2-4.9) X10*3/uL [place] # (Auto) 0.5 (0.1-1.2) X10*3/uL Eos # (Auto) 0.1 (0.0-0.4) X10*3/uL Baso # (Auto) 0.0 (0.0-0.2) X10*3/uL Abs Immat Gran (auto) 0.00 (0.00-0.03) X10*3/uL Absolute Neuts (auto) 2.1 (2.0-8.3) x10*3/uL Absolute Nucleated RBC 0.000 (0.0-0.012) X10*3/uL Nucleated RBC % (auto) 0.0 (0.0-0.2) /100WBC PT 11.8 (10.9-12.4) SEC INR 1.0 (0.9-1.1) Sodium 136 (135-145) mmol/L Potassium 3.4 (3.3-5.1) mmol/L Chloride 100 (96-108) mmol/L Carbon Dioxide 25 (22-29) mmol/L Anion Gap 14 (12-20) BUN 23 H (9-16) mg/dL Creatinine 1.30 (0.5-1.4) mg/dL Estim Creat Clear Calc 27.3 Estimated GFR 40 Random Glucose 99 (60-115) mg/dL Calcium 9.4 (8.4-10.2) mg/dL Magnesium 2.1 (1.6-2.6) mg/dL Total Bilirubin 0.6 (0.0-1.0) mg/dL AST 38 H (5-31) U/L ALT 23 (0-31) U/L Alkaline Phosphatase 84 (39-117) U/L B-Natriuretic Peptide 17 (<100) pg/mL Total Protein 7.9 (6.5-8.0) g/dL Albumin 4.4 (3.5-5.0) g/dL Influenza Type A (PCR) POSITIVE A (Negative) Influenza Type B (PCR) NEGATIVE (Negative) RSV RNA Qual (PCR) NEGATIVE (Negative) SARS-CoV-2 RNA (RT-PCR) NEGATIVE (Negative) Independent Interpretation I performed an independent interpretation of an: EKG (See narrative above) and Plain X-Ray (See narrative above) Radiology Impression Discussion of test interpretation with radiology: I have reviewed the radiologist's reading. Radiologist Impression: Chest Radiographs, 2 views Comparison: 06/09/23 Findings: No cardiomegaly. Normal mediastinal contours. No pneumothorax. No opacity. No pleural effusion. Normal upper abdomen. No acute fracture. Impression: No acute findings. External Record Review External record reviewed: Outpatient record Prescription Management I considered prescription management with: Pain Medication ( acetaminophen/ibuprofen) Chronic Conditions Patient?s care impacted by: Other (See narrative above) Discharge Plan Discharge Clinical Impression: Influenza Patient Disposition: Home, Self-Care Instructions: Influenza (ED) Additional Instructions: You were found to have the flu today which is likely exacerbating your asthma You were given an inhaler in the emergency department to take home and I have sent a prescription to your pharmacy as well. A prescription for prednisone has been sent to the pharmacy for you to take daily for the next 4 days. Be sure to rest, stay well hydrated drinking plenty of fluids, eat small frequent meals. Tylenol can be used as needed for fever/pain. Saline nasal spray, humidifier may be helpful for nasal congestion. You may return to the emergency department with any new or worsening symptoms or concerns. Follow-up with your primary care provider as needed. Prescriptions: New prednisone 20 mg tablet 40 mg PO DAILY Qty: 8 0RF No Action gabapentin 600 mg Tablet 1,200 mg PO TID metoprolol succinate 50 mg Tablet Extended Release 24 Hr 50 mg PO DAILY aspirin 81 mg Tablet,Chewable 81 mg PO DAILY losartan 100 mg Tablet 100 mg PO BEDTIME fluticasone propionate [Flovent HFA] 110 mcg/actuation Hfa Aerosol Inhaler 1 puff INHALATION BID Referrals: Betito Espinoza III, MD [Primary Care Provider] - Print Language: Hebrew
[2024-08-06 16:18] LABS: MANUAL DIFF FLAG NO
[2024-08-06 16:30] LABS: Basophils Percent Auto 0.2 % (0-2); Eosinophils Absolute Auto 0.1 X10*3/uL (0.0-0.4); Eosinophils Percent Auto 2.3 % (0-4); Hematocrit 37.2 % (37.0-47.0); Hemoglobin 12.9 g/dl (12.0-16.0); Lymphocytes Absolute Auto 1.6 X10*3/uL (1.2-4.9); Lymphocytes Percent Auto 36.6 % (20-40); Mean Corpuscular HGB Conc 34.7 g/dl (31.0-35.0); Mean Corpuscular Hemoglobin 32.5 pg (27.0-33.0); Mean Corpuscular Volume 93.7 fL (80.0-98.0); Mean Platelet Volume 9.6 fL (9.4-12.3); Monocytes Absolute Auto 0.5 X10*3/uL (0.1-1.2); Monocytes Percent Auto 11.3 % (2-11); Neutrophils Absolute Auto 2.1 x10*3/uL (2.0-8.3); Neutrophils Percent Auto 49.6 % (45-73); Platelet Count 237 X10*3/uL (160-400); Red Blood Count 3.97 X10*6/uL (4.20-5.50); Red Cell Distribution Width 13.2 % (11.0-16.0); White Blood Count 4.3 X10*3/uL (4.8-10.8)
[2024-08-06 16:39] LABS: Alanine Aminotransferase 23 U/L (0-31); Albumin Level 4.4 g/dL (3.5-5.0); Alkaline Phosphatase 84 U/L (39-117); Anion Gap 14 (12-20); Aspartate Amino Transferase 38 U/L (5-31); Bilirubin Total 0.6 mg/dL (0.0-1.0); Blood Urea Nitrogen 23 mg/dL (9-16); Calcium 9.4 mg/dL (8.4-10.2); Carbon Dioxide 25 mmol/L (22-29); Chloride 100 mmol/L (96-108); Creatinine Clr Calc Pharmacy 27.3; Estimated Glomerular Filt Rate 40; Glucose Random 99 mg/dL (60-115); Magnesium 2.1 mg/dL (1.6-2.6); Potassium 3.4 mmol/L (3.3-5.1); Sodium 136 mmol/L (135-145); Total Protein 7.9 g/dL (6.5-8.0)
[2024-08-06 16:40] LABS: Prothrombin Time 11.8 SEC (10.9-12.4)
[2024-08-06 16:43] LABS: B Type Natriuretic Peptide 17 pg/mL (<100)
[2024-08-06 17:19] LABS: Influenza A PCR POSITIVE (Negative); Influenza B PCR NEGATIVE (Negative); Resp Syncy Virus RNA Qual PCR NEGATIVE (Negative); SARS COV2 PCR INHOUSE NEGATIVE (Negative)
[2024-08-06] MEDS: Albuterol Sulfate 90 MCG 8 GM INHALER 4 PUFF INHALE (18:00)
[2024-08-06 18:01] VITALS: PULSE 67; RESP 18; O2SAT 95
[2024-08-06] MEDS: predniSONE 20 MG TABLET 40 MG PO (18:15)
[2024-08-06 18:28] VITALS: BP 145/66; PULSE 67; RESP 18; TEMP 37.1; O2SAT 96
== END 2024-08-06 18:29 | disposition home or self-care (01) ==
PROVIDERS: Nurse Practitioner Family; Emergency Provider Emergency Medicine; PCP Internal Medicine
DX: J10.1 Influenza due to other identified influenza virus with other respiratory manifestations (principal); R05.9 Cough, unspecified; R06.02 Shortness of breath; Z03.818 Encounter for observation for suspected exposure to other biological agents ruled out; Z79.899 Other long term (current) drug therapy
CPT/HCPCS: 0241U; 71046; 80053; 83735; 83880; 85025; 85610; 93005; 94640; 94664; 99284

== ENCOUNTER → 2024-08-06 15:51 | Outpatient (BNV) | payer OTHER, SELFPAY | PROVIDERS: PCP Internal Medicine; Visit Provider Radiology Diagnostic Radiology | DX: R05.9 Cough, unspecified (principal); R06.02 Shortness of breath | CPT/HCPCS: 71046 ==

== ENCOUNTER → 2024-08-06 15:51 | Outpatient (BNV) | payer OTHER, SELFPAY | PROVIDERS: Emergency Provider Emergency Medicine; PCP Internal Medicine; Visit Provider Internal Medicine Cardiovascular Disease | DX: R06.02 Shortness of breath (principal); R94.31 Abnormal electrocardiogram [ECG] [EKG] | CPT/HCPCS: 93010 ==

== ENCOUNTER 2025-06-02 15:37 | Inpatient (IN) | payer OTHER, SELFPAY ==
--- NOTE | ~2025-06-02 | XR_ITS ---
CLINICAL HISTORY: atraumatic L shoulder pain 3 view left shoulder Comparison: None provided Findings: No fractures or dislocations. Moderate to severe DJD of the AC joint with bulky osteophytosis. No erosions. No radiopaque foreign body. IMPRESSION: 1. No acute findings 2. Moderate to severe DJD of the AC joint with bulky osteophytes. This document has been electronically signed by: Oj Cherry MD on 06/02/2025 17:45:31
--- NOTE | ~2025-06-02 | US_ITS ---
EXAMINATION: US RETROPERITONEAL LIMITED (RENAL ONLY) CLINICAL INFORMATION: KIERSTEN. COMPARISON: None available. TECHNIQUE: Real-time ultrasound kidneys using grayscale technique. FINDINGS: RIGHT KIDNEY: 9 x 4 x 4 cm (SAG x AP x TRV). Volume: 77 cc. Parenchyma is echotexture. Renal cortical thickness is normal. No hydronephrosis. No gross solid lesion. There are few scattered less than 1.4 cm anechoic lesion in the corticomedullary junction midportion without septations or nodular components. LEFT KIDNEY: 9 x 4 x 4 cm (SAG x AP x TRV). Volume: 79 cc. Parenchyma is echotexture. Renal cortical thickness is normal. No hydronephrosis. No gross solid or cystic lesion US/US renal BI IMPRESSION: No hydronephrosis. No gross renal mass. No gross nephrolithiasis. Multiple cysts, right kidney.. Electronically signed by: Chuckie Schmidt MD 06/04/2025 10:21 AM JONATHAN
[2025-06-02 15:40] VITALS: BP 148/77; PULSE 61; RESP 18; TEMP 36.6; O2SAT 98; BMI 25.4
--- NOTE | 2025-06-02 15:41 | ED_ITS ---
HPI - General Adult General Chief complaint: Extremity Injury, Upper Stated complaint: facial/arm pain Time Seen by Provider: 06/02/25 16:25 History of Present Illness HPI narrative: patient is a 79-year-old female presents today with having shoulder pain on the left side. Worse with movement. There is no fever no chills. There is no chest pain there is no diaphoresis. Pain is worse with certain movement. There is no pain on movement of the right shoulder. Denies any diaphoresis. Pain has been ongoing there is no trauma. Came in for further evaluation has a long history of hypertension. Labs were ordered in triage by advanced triage Related Data Home Medications ?Medication ?Instructions ?Recorded ?Confirmed aspirin 81 mg chewable tablet 81 mg PO DAILY 06/09/23 06/02/25 gabapentin 600 mg tablet 1,200 mg PO TID 06/09/2312/20 losartan 100 mg tablet 100 mg PO BEDTIME 06/09/23 1 08/03/24 cetirizine 10 mg tablet 10 mg PO DAILY 06/02/2512/20 metoprolol succinate 100 mg 100 mg PO DAILY 06/02/25 1 08/03/24 tablet,extended release 24 hr spironolactone 25 0.5 tab PO BEDTIME 06/02/25 06/02/25 mg-hydrochlorothiazide 25 mg tablet Previous Rx's ?Medication ?Instructions ?Recorded prednisone 20 mg tablet 40 mg (2 x 20 mg) PO DAILY # 8 tabs 08/06/24 Allergies Allergy/AdvReac Type Severity Reaction Status Date / Time tramadol AdvReac Mild Nausea Verified 06/02/25 15:42 Review of Systems 2 Review of Systems: positive pain in the left shoulder Yes all other systems are reviewed and are negative [facility] Past Medical History Attestation statement: The following information was validated with the patient. Medical History Mild intermittent asthma Neuropathy Osteoarthritis Sciatica HTN (hypertension) Social History Social History Household Members: Family Housing: House Do you presently have visiting nurse or other home services: No Patient Tobacco Use Status: Never used Tobacco service: No Physical Exam ED Exam Exam: Appearance: Alert. Oriented X3. No acute distress. Eyes: Pupils equal, round and reactive to light. ENT: Pharynx normal. Neck: Normal inspection. Neck supple. No lymph nodes noted. No crepitus CVS: Normal heart rate and rhythm. Pulses normal. Normal S1 and S2 Respiratory: No respiratory distress. Breath sounds normal. No Wheezing. No rales Abdomen: Soft and nontender. No rigidity. No distention. good BS x4 Skin: Skin warm and dry. Normal skin color. Normal skin turgor. Extremities: No lower extremity edema. Neurovascular intact to all extremities. No Lacerations. No Rash Neuro: Oriented X 3. No motor deficit. No sensory deficit. Moving all extermities. No slurred speech Vital Signs: Vital Signs - 24 hr 06/02/25 15:40 06/02/25 16:34 Temperature 98 F 98.1 F Pulse Rate 61 61 Respiratory Rate 18 18 Blood Pressure 148/77 H 152/83 H Pulse Oximetry 98 97 Oxygen Delivery Method Room Air Room Air BMI result Body Mass Index 25.4 Course Course Course Narrative: This is a Rapid Medical Examination (RME) performed by Rodrigo Platt PA-C in triage. Full HPI, ROS, assessment and treatment plan per primary provider in the Main ED. Hx: 79 yo F hx of here for eval of atraumatic L shoulder pain x1 week. radiating to L chest, L shoulder blade, down LUE and into L neck, worse w/ movement. no injury/trauma. Plan: labs, ekg, shoulder xr Medications Administered Generic Name Dose Route Start Last Admin Trade Name Freq PRN Reason Stop Dose Admin Gabapentin 1,200 mg 06/02/25 21:00 06/02/25 21:05 Gabapentin 600 Mg Tablet PO 1,200 mg TID JULIA Administration Sodium Chloride 500 mls @ 50 mls/hr 06/02/25 18:15 06/02/25 18:08 Ns IVCONT 06/03/25 04:14 50 mls/hr .Q10H JULIA Administration Sodium Chloride 3 ml 06/03/25 00:00 06/02/25 23:28 0.9 % Sodium Chloride Flush 3 Ml Syringe IVFLUSH Not Given QSHIFT JULIA Discontinued Medications Generic Name Dose Route Start Last Admin Trade Name Freq PRN Reason Stop Dose Admin Sodium Chloride 1,000 mls @ 50 mls/hr 06/02/25 17:15 06/02/25 18:11 Ns IVCONT 12/07/25 03:14 Not Given .Q20H [facility] Medical Decision Making Medical Decision Making MDM Narrative: Patient's pain is reproducible with movement of the left shoulder. There is no fever no chills. No trauma. My interpretation patient's x-ray showed no acute fracture. Patient's troponin was done it was negative. Her pain is atypical for ACS. She is 79 years old she does have a history of hypertension. In the setting of negative enzymes she is unlikely to have ACS her heart score is a 3. Interestingly with the electrolytes patient has a sodium of 122. Will attempt to get patient's med list. She claims she is on metoprolol and losartan. Will ask patient to get a list of her meds. Will repeat patient's electrolytes. Currently in stable condition. No chest pain no dizziness no diaphoresis. My interpretation patient's EKG showed a sinus rhythm heart rate is 70 MI QRS QTC normal no acute ST segment elevation noted. Patient's family was able to bring her medication in. Patient is on spironolactone/ hydrochlorothiazide. Likely the cause of patient's low sodium. Patient to be admitted. I repeated patient's electrolytes sodium was exactly the same. She has no dizziness no nausea no vomiting. No seizures. Came in for very musculoskeletal sounding shoulder pain Differential Diagnosis Differential Diagnoses: The differential diagnosis associated with the presentation includes ACS, electrolyte disturbance, anemia, fracture, dislocation Admission/Observation Consideration of admission/observation: Escalation of care including admission/observation considered Consult Healthcare Provider Management of the patient was discussed with: Hospitalist Lab Data [facility] Lab Attestation statement: I reviewed the patient's lab results. 06/02/25 15:53 06/02/25 21:48 Labs: Lab Results 06/02/25 06/02/25 Range/Units 15:53 16:48 WBC 6.5 (4.8-10.8) X10*3/uL RBC 4.01 L (4.20-5.50) X10*6/uL Hgb 13.0 (12.0-16.0) g/dl Hct 37.0 (37.0-47.0) % MCV 92.3 (80.0-98.0) fL MCH 32.4 (27.0-33.0) pg MCHC 35.1 H (31.0-35.0) g/dl RDW 12.7 (11.0-16.0) % Plt Count 327 D (160-400) X10*3/uL MPV 8.2 L (9.4-12.3) fL Immature Gran % (Auto) 0.3 (0.0-0.4) % Neut % (Auto) 56.8 (45-73) % Lymph % (Auto) 32.4 (20-40) % Perry % (Auto) 9.8 (2-11) % Eos % (Auto) 0.5 (0-4) % Baso % (Auto) 0.2 (0-2) % Lymph # (Auto) 2.1 (1.2-4.9) X10*3/uL Perry # (Auto) 0.6 (0.1-1.2) X10*3/uL Eos # (Auto) 0.0 (0.0-0.4) X10*3/uL Baso # (Auto) 0.0 (0.0-0.2) X10*3/uL Abs Immat Gran (auto) 0.02 (0.00-0.03) X10*3/uL Absolute Neuts (auto) 3.7 (2.0-8.3) x10*3/uL Absolute Nucleated RBC 0.000 (0.0-0.012) X10*3/uL Nucleated RBC % (auto) 0.0 (0.0-0.2) /100WBC Sodium 122 L 121 L (135-145) mmol/L Potassium 4.4 D 4.0 (3.3-5.1) mmol/L Chloride 88 L 88 L (96-108) mmol/L Carbon Dioxide 25 24 (22-29) mmol/L Anion Gap 13 13 (12-20) BUN 24 H 23 H (9-16) mg/dL Creatinine 1.28 1.25 (0.5-1.4) mg/dL Estim Creat Clear Calc 27.4 28.1 Estimated GFR 40 41 Random Glucose 86 93 (60-115) mg/dL Calcium 9.5 9.4 (8.4-10.2) mg/dL Magnesium 2.0 (1.6-2.6) mg/dL Total Bilirubin 0.9 (0.0-1.0) mg/dL AST 36 H (5-31) U/L ALT 29 (0-31) U/L Alkaline Phosphatase 93 (39-117) U/L Troponin I High Sens < 2.7 < 2.7 (<3.5-17.0) ng/L Total Protein 7.3 (6.5-8.0) g/dL Albumin 4.7 (3.5-5.0) g/dL Urine Osmolality 309 L (373-1093) mosm/kg Ur Random Sodium 39.0 mmol/L Independent Interpretation I performed an independent interpretation of an: EKG ( sinus heart rate is 60 MI QRS QTC normal no acute ST segment elevation) and Ultrasound ( left shoulder x- ray is grossly negative no fracture) Radiology Impression Discussion of test interpretation with radiology: I have reviewed the radiologist's reading. External Record Review External record reviewed: Inpatient record Chronic Conditions history of hypertension Social Determinants Patient?s care significantly limited by Social Determinants of Health including: Problems related to primary support group Critical Care Time Critical Care Time Critical Care Time: Yes Total Critical Care Time: 40 Attestation: I have personally provided 40 minutes of critical care time exclusive of time spent on separately billable procedures. ?Time includes review of lab data, radiology results, discussion with consultants, and monitoring for potential decompensation. ?Interventions were performed as documented above Discharge Plan Discharge Clinical Impression: Acute hyponatremia Patient Disposition: Admitted As Inpatient Interventions: Admission Worksheet (ED) Last Done: 06/02/25 19:26 Discharge Date/Time: 06/02/25 20:12
--- NOTE | 2025-06-02 15:42 | ECG_ITS ---
Test Reason : L SHOULDER PAIN Blood Pressure : */* mmHG Vent. Rate : 57 BPM Atrial Rate : 57 BPM P-R Int : 152 ms QRS Dur : 82 ms QT Int : 390 ms P-R-T Axes : 52 24 32 degrees QTcB Int : 379 ms Sinus bradycardia Otherwise normal ECG When compared with ECG of 06-Aug-2024 16:10, No significant change was found Referred By: Kellee Platt Electronically Signed By: JOSHUA ESPINOZA
[2025-06-02 16:03] LABS: MANUAL DIFF FLAG NO
[2025-06-02 16:04] LABS: Hematocrit 37.0 % (37.0-47.0); Hemoglobin 13.0 g/dl (12.0-16.0); Imm Gran Abs Auto 0.02 X10*3/uL (0.00-0.03); Imm Gran Pct Auto 0.3 % (0.0-0.4); Lymphocytes Absolute Auto 2.1 X10*3/uL (1.2-4.9); Mean Corpuscular HGB Conc 35.1 g/dl (31.0-35.0); Mean Corpuscular Hemoglobin 32.4 pg (27.0-33.0); Mean Corpuscular Volume 92.3 fL (80.0-98.0); NRBC Abs Auto 0.000 X10*3/uL (0.0-0.012); NRBC Pct Auto 0.0 /100WBC (0.0-0.2); Platelet Count 327 X10*3/uL (160-400); Red Blood Count 4.01 X10*6/uL (4.20-5.50); White Blood Count 6.5 X10*3/uL (4.8-10.8)
[2025-06-02 16:17] LABS: Alanine Aminotransferase 29 U/L (0-31); Albumin Level 4.7 g/dL (3.5-5.0); Alkaline Phosphatase 93 U/L (39-117); Anion Gap 13 (12-20); Aspartate Amino Transferase 36 U/L (5-31); Blood Urea Nitrogen 24 mg/dL (9-16); Calcium 9.5 mg/dL (8.4-10.2); Carbon Dioxide 25 mmol/L (22-29); Chloride 88 mmol/L (96-108); Creatinine Clr Calc Pharmacy 27.4; Estimated Glomerular Filt Rate 40; Magnesium 2.0 mg/dL (1.6-2.6); Potassium 4.4 mmol/L (3.3-5.1); Sodium 122 mmol/L (135-145); Total Protein 7.3 g/dL (6.5-8.0)
[2025-06-02 16:24] LABS: Troponin-I High Sensitivity < 2.7 ng/L (<3.5-17.0)
[2025-06-02 16:34] VITALS: BP 152/83; PULSE 61; RESP 18; TEMP 36.7; O2SAT 97
--- OUTSIDE RECORDS SUMMARY | 2025-06-02 16:47 | XMS_ITS | Clinical Summary ---
Author Organization [address] Address [address] [place] [phone] Phone Care Team Providers Care Carry In Worker Name Role Phone Betito Espinoza MD Primary Care Provider [phone] Allergies Active Allergy Reactions Criticality Noted Date Comments Amlodipine Swelling 01/19/2024 Tramadol Nausea And Vomiting 07/10/2022 Tuberculin Swelling 09/20/2007 Medications albuterol HFA (PROAIR HFA ; PROVENTIL HFA ; VENTOLIN HFA) 90 mcg/actuation inhaler Inhale 1 Puff into the lungs every 6 hours as needed for Cough or Wheezing. 4 Active aspirin 81 mg EC tablet Take 1 Tab by mouth daily for 180 days. 0 Active diclofenac (VOLTAREN) 1 % topical gel Apply 4 g topically 2 times daily. 4 Active fluticasone propionate (FLONASE) 50 mcg/actuation nasal spray Administer 2 sprays into each nostril 1 (one) time each day. Shake gently. Before first use, prime pump. After use, clean tip and replace cap. 16 g 1 5 Active fluticasone HFA (FLOVENT HFA) 110 mcg/actuation inhaler Inhale 1 Puff into the lungs 2 times daily. Rinse mouth with water after use to reduce aftertaste and incidence of candidiasis. Do not swallow. 1 each 1 5 Active azelastine (OPTIVAR) 0.05 % ophthalmic solution INSTILL 1 DROP IN BOTH EYES TWICE DAILY 18 mL 1 5 Active amitriptyline (ELAVIL) 10 mg tablet Take 1-2 tablets (10-20 mg total) by mouth at bedtime. 60 tablet 5 5 12/22/19 26 Active valACYclovir (VALTREX) 500 mg tablet Take 1 tablet (500 mg total) by mouth 2 (two) times a day. 6 tablet 4 5 Active gabapentin (NEURONTIN) 600 mg tablet Take 2 tablets (1,200 mg total) by mouth 3 (three) times a day. 540 tablet 1 5 Active losartan (COZAAR) 100 mg tablet TAKE 1 TABLET(100 MG) BY MOUTH 1 TIME EACH DAY 90 tablet 1 5 Active cetirizine (ZyrTEC) 10 mg tablet TAKE 1 TABLET BY MOUTH EVERY DAY 90 tablet 1 5 Active metoprolol succinate (TOPROL-XL) 100 mg 24 hr tablet Take 1 tablet (100 mg total) by mouth 1 (one) time each day. Do not crush or chew. 90 tablet 1 5 Active spironolactone- hydroCHLOROthia zide (Aldactazide) 25-25 mg per tablet Take 0.5 tablets (12.5 mg total) by mouth 1 (one) time each day. 45 each 1 5 04/27/20 26 Active Active Problems Problem Noted Date Diagnosed Date Fibromyalgia 01/24/2019 Cervical spinal stenosis 02/09/2018 Allergic rhinitis 01/05/2018 Diastolic dysfunction 11/05/2017 Overview (06/13/2024): June 2017: Echocardiogram with EF 65% Patent foramen ovale 11/05/2017 Overview (06/13/2024): June 2017: Echocardiogram with nuji-bo-[id number] shunting and diastolic dysfunction, EF 65% Overweight (BMI 25.0-29.9) 11/05/2017 Prediabetes 11/05/2017 Overview (06/13/2024): September 2007: HA1c of 5.7% Mixed hyperlipidemia 08/14/2016 CKD (chronic kidney disease) stage 3, GFR 30-59 ml/min ([facility] V24, [facility] V28) 11/08/2014 Renal cyst 06/09/2012 Herpes genitalia 03/01/2012 Osteopenia 06/16/2011 Carpal tunnel syndrome 08/08/2010 Overview (06/13/2024): 2009: mild bilateral on EMG - [facility] Hemorrhage of gastrointestinal tract 01/14/2009 Overview (06/13/2024): Negative colonoscopy 02/01/2009, no colon cancer screening needed for 10 years. [facility] [place] Anxiety 10/07/2007 Other emphysema ([facility] V24, [facility] V28) 03/11 Thyrotoxicosis 11/13/2006 Disorder of bursae and tendons in shoulder regio n 08/23/2006 Overview (06/13/2024): on left occ. local injections; decompressive surgery Dr. Salmon 03/04 [facility] [place] Asthma 10/07/2005 Essential hypertension, benign 10/07/2005 Depressive disorder 05/29/2005 Lumbosacral spondylosis without myelopathy 05/29 Overview (06/13/2024): Not radiated to the legs, paraspinal muscle spasms, no GI or complaints. Sometimes pain is severe and is precipitated by all weight bearing activities Immunizations Immunization Administration Dates Next Due H1N1 Inj Preservative Free 04/28/2009 Influenza trivalent, 0.5mL ( Fluad) 65yo and older 03/08/2023,05/18/2022,06/02/2021,04/18 Influenza trivalent, 0.5mL, preservative free (Fluarix; FluLaval; Fluzone) ages 6mo and older (Afluria) 3 years and older 03/12/2008,04/09/2007 Influenza trivalent, with pr eservative (Fluzone; Afluria) 6mo and older 05/01/2015,03/02/2013,03/16/2012,03/26,03/12/2010,03/31/2006 Moderna (age 6mo & older) Bi valent, COVID-19, 0.5 mL or 0.25 mL dosage 05/29/2022 Pfizer (ages 12 & older) Biv alent, COVID-19 01/30/2022 Pfizer SARS-CoV-2 COVID-19, mRNA, LNP-S, preservative free 01/30/2022,05/16/2021,08/27/2020,08/06 Pneumococcal conjugate 13 va lent (Prevnar 13, PCV13) 2mo and older 05/01/2015 Pneumococcal polysaccharide 23 valent (Pneumovax 23) 2yo and older 04/18/2017,09/30/2007 TD, Adsorbed, Preservative Free 01/14/2011 Td Tetanus diptheria (Tdvax) 7yo and older 07/09/2021 Zoster Live 04/18/2017 Surgical History Surgery Date Site/Laterality Comments CHOLECYSTECTOMY PROCEDURE: HISTORICAL CHOLECYSTECTOMY SECTION PROCEDURE: MT DELIVERY ONLY; COMMENT: one only TONSILLECTOMY PROCEDURE: HISTORICAL TONSILLECTOMY CHOLECYSTECTOMY PROCEDURE: MT LAPAROSCOPY SURG CHOLECYSTECTOMY COLONOSCOPY 01/09/04 PROCEDURE: MT COLONOSCOPY STOMA DX INCLUDING COLLJ SPEC SPX; COMMENT: Up to cecum, excellent preparation, normal COLONOSCOPY 02/01/2009 PROCEDURE: MT COLONOSCOPY FLX DX W/COLLJ SPEC WHEN PFRMD; COMMENT: Normal CARPAL TUNNEL RELEASE 03/2013 PROCEDURE: HISTORICAL CARPAL TUNNEL REL Medical History Medical History Date Comments Lumbosacral spondylosis with out myelopathy DX:Lumbosacral spondylosis w ithout myelopathy Myalgia and myositis, unspecified 05/29/2005 DX:Myalgia and myositis, unspecified Bacterial pneumonia, unspecified 11/04/2006 DX:Bacterial pneumonia, unspecified Disorders of bursae and tend ons in shoulder region, unspecified 08/23/2006 DX:Disorders of bursae an d tendons in shoulder region, unspecified; COMMENT: on left occ. local injections; decompressive surgery Dr. 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 Unspecified asthma(493.90) DX:Un specified asthma(493.90) Anxiety state, unspecified 11/04/2006 DX:An xiety state, unspecified Bronchitis, not specified as acute or chronic 11/04/2006 DX:Bronchitis, not specified as acute or chronic Essential hypertension, benign D X:Essential hypertension, benign Unspecified disorder of thyroid DX:Unspecified disorder of thyroid Carpal tunnel syndrome 08/08/2010 DX:Carpal tunnel syndrome Herpes genitalia 03/01/2012 DX:Herpes genit vitor CKD (chronic kidney disease) stage 3, GFR 30-59 ml/min ([facility] V24, CMS/HCC V28) 11/08/2014 DX:CKD (chronic kidney disea se) stage 3, GFR 30-59 ml/min ([facility]) Lumbosacral spondylosis with out myelopathy DX:Lumbosacral spondylosis w ithout myelopathy Family History Medical History Relation Name Comments Diabetes Brother 1 Diabetes Brother 2 Arthritis Father Glaucoma Father Arthritis Mother Cataracts Mother Autoimmune disease Neg Hx Blindness Neg Hx Breast cancer Neg Hx Colon cancer Neg Hx Coronary artery disease Neg Hx Heart attack Neg Hx Heart failure Neg Hx Hyperlipidemia Neg Hx Hypertension Neg Hx Macular degeneration Neg Hx Mental illness Neg Hx Prostate cancer Neg Hx Sleep apnea Neg Hx Strabismus Neg Hx Thyroid disease Neg Hx Relation Name Status Comments Brother 1 Brother 2 Brother 3 Alive cva Father intestinal perf oration Mother asthma, emphyse ma Sister Alive Social History Tobacco Use Types Packs/Day Years Used Date Smoking Tobacco: Never Smokeless Tobacco: Never Tobacco Cessation:Counseling Given: Not Answered Alcohol Use Standard Drinks/Week Comments No 0 (1 standard drink = 0.6 oz pur e alcohol) Comments No Sex and Gender Information Value Date Recorded Sex Assigned at Not on file Legal Sex Female 9:52 AM EST Gender Identity Not on file Sexual Orientation Not on file Obstetrics History Last Filed Vital Signs Vital Sign Reading Time Taken Comments Blood Pressure 120/74 12/21/2024 2:17 PM EDT Pulse 74 12/21/2024 2:17 PM EDT Temperature 36.3 C (97.4 F) 12/21/2024 2:17 PM EDT Respiratory Rate 16 12/21/2024 2:17 PM EDT Oxygen Saturation 99% 12/21/2024 2:17 PM EDT Inhaled Oxygen Concentration - - Weight 58.5 kg (129 lb) 12/21/2024 2:17 PM EDT Height 149.9 cm (4' 11 ) 12/21/2024 2:17 PM EDT Body Mass Index 26.05 12/21/2024 2:17 PM EDT Plan of Treatment Upcoming Encounters Date Type Department Care Team (Late st Contact Info) Description 06/26/2025 10:00 AM EST Office Visit Adult Medicine [facility] [address] [place] [phone] Miguel Wells PA [address] [place] [phone] Health Maintenance Due Date Last Done Comments Zoster Vaccines (1 of 2) 06/13/2017 04/18/2017 RSV Immunization Adult Patients (1 - 1-dose 75+ series) 2020 Falls Risk Assessment 06/06/2022 Medicare Annual Wellness Visit 06/06/2022 Social Influencers of Health Screening 06/06/2022 Depression Screening 2024 COVID-19 Vaccine ( season) 2025 04/06/2024, 05/29/2022, 01/30/2022, Additional history exists Influenza Vaccine (#1) 2025 , 03/08/2023, 05/18/2022, Additional history exists Hypertension/CHF/CAD Annual BMP Blood Test 02/21/2026 02/21/2025, 08/25/2024, 02/16/2024, Additional history exists Cholesterol Screening (Lipid Panel) 08/25/2029 08/25/2024, 02/05/2023 DTaP,Tdap,and Td Vaccines (2 - Td or Tdap) 07/09/2031 07/09/2021, 01/14/2011 Osteoporosis Screening (Bone Density Screening) 03/19/2033 03/19/2023 Hepatitis C Screening Completed 01/04/2009 Pneumococcal Vaccine: 50+ Years Completed 04/18/2017, 05/01/2015, 09/30/2007 HIB Vaccines Aged Out No longer eligi ble based on patient's age to complete this topic HPV Vaccines Aged Out No longer eligi ble based on patient's age to complete this topic Hepatitis A Vaccines Aged Out No long er eligible based on patient's age to complete this topic Hepatitis B Vaccines Aged Out No long er eligible based on patient's age to complete this topic IPV Vaccines Aged Out No longer eligi ble based on patient's age to complete this topic MMR Vaccines Aged Out No longer eligi ble based on patient's age to complete this topic Meningococcal ACWY Vaccine Aged Out N o longer eligible based on patient's age to complete this topic Meningococcal B Vaccine Aged Out No l onger eligible based on patient's age to complete this topic RSV Immunization Patients Under 20 months Aged Out No longer eligible based on patient's age to complete this topic Varicella Vaccines Aged Out No longer eligible based on patient's age to complete this topic Procedures Procedure Name Priority Date/Time Associated Diagnosis Comments CREATININE, SERUM Routine 02/21/2025 8:5 7 AM EDT Stage 3a chronic kidney disease (CMS/HCC V24, CMS/HCC V28) Essential hypertension, benign LIPID PANEL WITH REFLEX TO DIRECT LDL Routine 08/25/2024 10:20 AM EST Prediabetes Mixed hyperlipidemia DXA BONE DENSITY STUDY 1+ SITS AXIAL SKEL Routine 03/19/2023 4:11 PM EDT Asymptomatic menopausal state HEPATITIS C SCREENING Routine 01/04/2009 from Last 3 Months or Most Recently Relevant to Health Maintenance Results * (ABNORMAL) Creatinine (02/21/2025 8:57 AM EDT) Creatinine 1.49(H) 0.50 - 1.10 mg/dL LAB CHEMISTRY METHOD 02/21/2025 12:47 PM EDT [facility] eGFR 36(L) >=60 mL/min/1. 73m2 LAB CHEMISTRY METHOD 02/21/2025 12:47 PM EDT [facility] Comment:Calculation based on the Chronic Kidney Disease Epidemiology Collaboration (CKD-EPI) equation refit without adjustment for race. Blood Venous blood specimen / Unknown Venipuncture / Unknown 02/21/2025 8:57 AM EDT 02/21/2025 8:57 AM EDT Ronak Martinez MD LAB BLOOD ORDERABLES Final Resu lt [facility] [address] [place] [address], [place] [phone] * (ABNORMAL) Lipid panel with reflex to direct LDL (08/25/2024 10:20 AM EST) [facility] Cholesterol 190 0 - 200 mg/dL LAB CHEMISTRY METHOD 08/25/2024 1:56 PM EST [facility] Triglycerides 140 0 - 150 mg/dL LAB CHEMISTRY METHOD 08/25/2024 1:56 PM EST [facility] HDL 43 >=40 mg/dL LAB CHEMISTRY METHOD 08/25/2024 1:56 PM EST [facility] LDL Calculated 119(H) 0 - 100 mg/dL LAB CHEMISTRY METHOD 08/25/2024 1:56 PM EST [facility] VLDL Cholesterol Jose 28 mg/dL LAB CHEMISTRY METHOD 08/25/2024 1:56 PM EST [facility] Non HDL Chol. (LDL+VLDL) 147(H) <145 mg/dL LAB CHEMISTRY METHOD 08/25/2024 1:56 PM EST [facility] Chol/HDL Ratio 4.4 0.0 - 4.4 LAB CHEMISTRY METHOD 08/25/2024 1:56 PM [facility] Blood Venous blood specimen / Unknown Venipuncture / Unknown 08/25/2024 10:20 AM EST 08/25/2024 10:20 AM EST Miguel GALLEGOS LAB BLOOD ORDERABLES Fi nal Result Performing Organization Address City/[facility]/ZIP Co de Phone Number [facility] [address] [place] [address], [place] [phone] * DXA BONE DENSITY STUDY 1+ SITS AXIAL SKEL (03/19/2023 4:11 PM EDT) Anatomical Region Laterality Modality Bone Densitometr y 07/10/2022 11:5 8 AM EST Narrative 03/22/2023 5:13 PM EDT BONE DENSITY SCAN (DEXA): FINDINGS: Lumbar Spine T-score is -0.7. (SD relative to 20-29 y/o adult) Z-score is 1.8. (SD relative to age matched peers) This is considered normal by WHO criteria. Left Hip T-score is -1.9. Z-score is 0.2. This is considered osteopenia by WHO criteria. Comparison exam(s): 03/23/2013. 6.4% loss of left hip bone mineral density and 4.6% loss of lumbar spine bone mineral density, both statistically significant at the 95% confidence level. IMPRESSION: IMPRESSION: Osteopenia by WHO criteria. This patient has an 8.0% risk of major osteoporotic fracture and a 2.0% risk of hip fracture over the next 10 years. (World Health Organization Fracture Risk Assessment) [facility] Department of Internal Medicine recommends using National Osteoporosis Foundation (NOF) guidelines in treatment decisions related to osteoporosis. NOF guidelines suggest considering treatment for postmenopausal women and men aged 50 or older presenting with the following: History of hip or vertebral fracture. T-score = -2.5 (DXA) at the femoral neck, total hip, or spine, after appropriate evaluation to exclude secondary causes. Low bone mass (T-score between -1.0 and -2.5 at the femoral neck or spine) AND a 10-year probability of a hip fracture = 3% OR a 10-year probability of a major osteoporosis-related fracture = 20% based on the [place]-adapted WHO algorithm Please note that all treatment decisions require clinical judgment and consideration of individual patient factors, including patient preferences, co-morbidities, previous drug use, risk factors not captured in the FRAX model (e.g., frailty, falls, vitamin D deficiency, increased bone turnover, interval significant decline in bone density) and possible under- or over-estimation of fracture risk by FRAX. Optional alternative screening schedule based on maddie Koenig., [facility] July 16, 2011 for patients with osteopenia (based on hip BMD T-score) is as follows: * advanced osteopenia (T scores -2.00 to -2.49), BMD testing every year * moderate osteopenia (T scores -1.50 to -1.99), BMD testing every 5 years mild osteopenia or normal BMD (T scores -1.50 and higher), BMD testing every 15 years Procedure Note Claudia Barakat MD - 08/03/2023 BONE DENSITY SCAN (DEXA): FINDINGS: Lumbar Spine T-score is -0.7. (SD relative to 20-29 y/o adult) Z-score is 1.8. (SD relative to age matched peers) This is considered normal by WHO criteria. Left Hip T-score is -1.9. Z-score is 0.2. This is considered osteopenia by WHO criteria. Comparison exam(s): 03/23/2013. 6.4% loss of left hip bone mineraldensity and 4.6% loss of lumbar spine bone mineral density, both statistically significant at the95% confidence level. IMPRESSION: IMPRESSION: Osteopenia by WHO criteria. This patient has an 8.0% risk of majorosteoporotic fracture and a 2.0% risk of hip fracture over the next 10 years. (World HealthOrganization Fracture Risk Assessment) [facility] Department of Internal Medicine recommendsusing National Osteoporosis Foundation (NOF) guidelines in treatment decisions related toosteoporosis. NOF guidelines suggest considering treatment for postmenopausal women and menaged 50 or older presenting with the following: History of hip or vertebral fracture. T-score = -2.5 (DXA) at the femoral neck, total hip, or spine, afterappropriate evaluation to exclude secondary causes. Low bone mass (T-score between -1.0 and -2.5 at the femoral neck or spine)AND a 10-year probability of a hip fracture = 3% OR a 10-year probability of a majorosteoporosis-related fracture = 20% based on the [place]-adapted WHO algorithm Please note that all treatment decisions require clinical judgment andconsideration of individual patient factors, including patient preferences, co- morbidities,previous drug use, risk factors not captured in the FRAX model (e.g., frailty, falls, vitaminD deficiency, increased bone turnover, interval significant decline in bone density) andpossible under- or over-estimation of fracture risk by FRAX. Optional alternative screening schedule based on shanice Koenig al., NEJMJanuary 2011 for patients with osteopenia (based on hip BMD T-score) is as follows: * advanced osteopenia (T scores -2.00 to -2.49), BMD testing every year * moderate osteopenia (T scores -1.50 to -1.99), BMD testing every 5years mild osteopenia or normal BMD (T scores -1.50 and higher), BMD testingevery 15 years us Katherine GALLEGOS IMG DXA PROCEDURES Final Resu lt * Hepatitis C Screening (01/04/2009) [facility] Hepatitis C Screening Abstracted us Historical Provider MD HEALTH MAINTENANCE Final Result from Last 3 Months or Most Recently Relevant to Health Maintenance Insurance MEDICAID - [place] [employer] MEDICARE Care Teams Carry In Worker Relationship Specialty Start Date End Date Betito Espinoza MD [address] [place] [phone] PCP - General Internal Medicine 07/23/15
--- OUTSIDE RECORDS SUMMARY | 2025-06-02 16:47 | XMS_ITS ---
Author Name Ani SEALS, MRS. Leavitt Address [address] [place] [address] Phone [phone] [facility] Care Team Providers Care Linux Architect Name Role Phone Dagmar Law Unavailable [phone] [facility] CC, Marlene Unavailable Unavailable Reason for Referral Not Available Allergies, adverse reactions, alerts Allergen Type Reaction Severity Status Onset Date Tramadol Allergy to substance (disorder) Vomiting Unknown Active N/A Tuberculin Tests Allergy to substance (disorder) U nknown Active N/A History of medication use Medication Class Instructions Start Date End Date Cetirizine 10 mg Tab TAKE 1 TABLET BY MO [facility] ONCE DAILY 2022-02-05 No Data Available Diclofenac Sodium 1 % Gel APPLY 4 GRAMS TOPICALLY TO AFFECTED AREA FOUR TIMES DAILY 2022-02-05 No Data Available Flovent HFA 110 MCG/ACT Aerosol INHALE 1 PUFF INTO LUNGS TWICE DAILY 2022-02-05 No Data Available Gabapentin 600 mg Tab TAKE 2 TABLETS BY MOUTH THREE TIMES DAILY 2022-02-05 No Data Available Azelastine 0.05 % Solution INSTILL 1 FOUZIA P INTO EACH EYE TWICE DAILY 2022-02-05 No Data Available Metoprolol Succinate ER 100 mg Tab ER 24hr TAKE 1 TABLET BY MOUTH ONCE DAILY 2022-02-23 No Data Available valACYclovir 500 mg Tab TAKE 1 TABLET BY MOUTH TWICE DAILY FOR 3 DAYS, AT FIRST SIGN OF OUTBREAK 2022-05-27 No Data Available Tylenol Extra Strength 500 m g Tab 2 tablets orally one time TID PRN pain 2022-07-27 No Data Available Losartan Potassium 100 mg Tab 1 tablet orally daily 16-02-29 No Data Available Fish Oil 1000 mg Cap 1 capsule by mouth daily No Data Available Ketorolac Tromethamine 0.5 % Solution STARTING 2 DAYS BEFORE SURGERY, INSTILL 1 DROP INTO OPERATIVE EYE TWICE DAILY 2023-04-19 No Data Available Dsutbfix-Lbpoqxker-Whlvrxcc 3.5-69127-6.1 Oint APPLY TO LID AT BEDTIME 2023-05-13 No Data Availabl e Lidocaine 5 % Patch PLACE 1 PATCH ONTO T HE SKIN EVERY 24 HOURS. DO NOT LEAVE ON FOR MORE THAN 12 HOURS IN A 24 HOURS PERIOD 2023-06-07 No Data Available VITAMIN C 500MG CHEWABLE TAB S N/M TAKE 1 TABLET BY MOUTH TWICE DAILY 2023-06-07 No Data Available amLODIPine Besylate 5 mg Tab TAKE 1 TABL ET BY MOUTH DAILY 2023-08-16 No Data Available hydroCHLOROthiazide 12.5 mg Tab Take 1 tablet daily. 2 No Data Available Albuterol Sulfate HFA 108 (9 0 Base) MCG/ACT Aerosol Solution Inhalation 2 puffs Q 4-6H PRN cough, wheezing, SOB 2024-07-11 No Data Available valACYclovir 500 mg Tab Take 1 tab by mo uth BID for 3 days 2024-07-11 No Data Available Amoxicillin-Pot Clavulanate 875/125 mg Tab TAKE 1 TABLET BY MOUTH EVERY 12 HOURS FOR 10 DAYS 2024-03-10 No Data Available predniSONE 20 mg Tab TAKE 2 TABLETS BY M OUTH ONCE DAILY 2024-08-06 No Data Available Problem List Problem Status Onset Date Resolved Date Synopsis Stage 3 chronic kidney disease Active 2023-09-01 N/A States she was s monie Cali and he diagnosed her with stage 3 CKD years ago but she has not been told anything else about it. States she was told it was stable, and she goes back every 3 months for monitoring. Other problems related to medical facilities and other health care Active 2023-08-31 N/A Contingenc y Plan:Asthma, HTN, FibromyalgiaKidney function presumably at stage 3 CKD renal dosing recommendedMost recent hospitalization was r/t BP fluctuations- consider adding on Clonidine or Hydralazine for acute temporary management of blood pressure if BP very high without other symptoms. Fibromyalgia Active 2022-07-27 N/A Rx: Gabapent inReports chronic pain, says medication is mildly effective. Has appointment with PCP in July. 07/11/24 : Continue current treatment plan as directed. Had a f/u with PCP on 04/20. Essential hypertension Active 2022-07-27 N/A Rx : Losartan, MetoprololHas BP cuff at home, says her BP has been running high, has not seen PCP for dose adjustment in months. Has appointment in July. 07/11/24 : Continue current treatment plan as directed. Had a f/u with PCP on 04/20. Asthma Active 2022-07-27 N/A Rx: FloventDen ies SOB, or recent asthma exacerbations. Follows with PCP. 07/11/24 : Continue current treatment plan as directed. Had a f/u with PCP on 04/20. Other problems related to medical facilities and other health care Active 2024-07-11 N/A HYPERTE NSION CONTINGENCY PLANLast updated: 07/11/2024Member to call for the following symptoms: BP >180/100 / Chest pain / HeadachePlanned intervention: Assess for signs of end organ damage (headache, vision changes, chest pain)/ Frame Polisher on proper BP monitoring technique and reassess/ Increase current medication dose: Amlodipine to 10 mg/ Encourage low sodium diet/ Discuss breathing exercises/ Encourage medication adherence Balance disorder Active 2024-07-11 N/A Reports balance issues and chronic pain in both legs d/t Fibromyalgia Poor strength in lower extremities. Requesting a rollator Encounters Encounters Type Facility Date of Service Diagnosis/Co mplaint New patient, 30-44min 1 stable chronic or 2 minor; add modifier 95 for video, modifier 93 for phone [facility] ([place] 07/27/2022 FibromyalgiaEssential (prima ry) hypertensionUnspecified asthma, uncomplicated New patient, 30-44min 1 stable chronic or 2 minor; add modifier 95 for video, modifier 93 for phone [facility], ([place]) 07/27/2022 New patient, 30-44min 1 stable chronic or 2 minor; add modifier 95 for video, modifier 93 for phone [facility] ([place] 07/27/2022 New patient, 30-44min 1 stable chronic or 2 minor; add modifier 95 for video, modifier 93 for phone [facility] ([place] 07/27/2022 New patient, 30-44min 1 stable chronic or 2 minor; add modifier 95 for video, modifier 93 for phone [facility], ([place] 07/27/2022 New patient, 30-44min 1 stable chronic or 2 minor; add modifier 95 for video, modifier 93 for phone [facility], [place] 07/27/2022 New patient, 30-44min 1 stable chronic or 2 minor; add modifier 95 for video, modifier 93 for phone [facility] [place] 07/27/2022 New patient, 30-44min 1 stable chronic or 2 minor; add modifier 95 for video, modifier 93 for phone [facility], [place] 07/27/2022 New patient, 30-44min 1 stable chronic or 2 minor; add modifier 95 for video, modifier 93 for phone [facility], [place] 07/27/2022 Unlisted special service; to be used for medical record reviews and reporting CPTII codes (1111F, etc) [facility] ([place]) 03/08/2023 Other specified health statu s Unlisted special service; to be used for medical record reviews and reporting CPTII codes (1111F, etc) [facility], [place] 03/08/2023 Unlisted special service; to be used for medical record reviews and reporting CPTII codes (1111F, etc) [facility] ([place]) 03/08/2023 Estab. patient 30-39min; chronic exacerbation, 2 stable chronic or 1 acute illness add add modifier 95 for video, (do not use for phone, instead use [id number]) [facility], ([place] 09/01/2023 FibromyalgiaHypertensive chr onic kidney disease w stg 1-4/unsp chr kdnyUnspecified asthma, uncomplicatedChronic kidney disease, stage 3 unspecifiedOther problems related to medical facilities and other health care Estab. patient 30-39min; chronic exacerbation, 2 stable chronic or 1 acute illness add add modifier 95 for video, (do not use for phone, instead use [id number]) [facility] [place] 09/01/2023 Estab. patient 30-39min; chronic exacerbation, 2 stable chronic or 1 acute illness add add modifier 95 for video, (do not use for phone, instead use [id number]) [facility] [place] 09/01/2023 Estab. patient 30-39min; chronic exacerbation, 2 stable chronic or 1 acute illness add add modifier 95 for video, (do not use for phone, instead use [id number]) [facility] [place] 09/01/2023 Estab. patient 30-39min; chronic exacerbation, 2 stable chronic or 1 acute illness add add modifier 95 for video, (do not use for phone, instead use [id number]) [facility] [place] 09/01/2023 Estab. patient 30-39min; chronic exacerbation, 2 stable chronic or 1 acute illness add add modifier 95 for video, (do not use for phone, instead use [id number]) [facility] [place] 09/01/2023 Estab. patient 30-39min; chronic exacerbation, 2 stable chronic or 1 acute illness add add modifier 95 for video, (do not use for phone, instead use 96111-68) [facility] [place] 09/01/2023 Estab. patient 30-39min; chronic exacerbation, 2 stable chronic or 1 acute illness add add modifier 95 for video, (do not use for phone, instead use 27399-91) [facility] [place] 09/01/2023 Estab. patient 30-39min; chronic exacerbation, 2 stable chronic or 1 acute illness add add modifier 95 for video, (do not use for phone, instead use 42440-45) [facility] [place] 09/01/2023 Estab. patient 30-39min; chronic exacerbation, 2 stable chronic or 1 acute illness add add modifier 95 for video, (do not use for phone, instead use 10916-14) [facility] [place] 09/01/2023 Unlisted special service; to be used for medical record reviews and reporting CPTII codes (1111F, etc) [facility] ([place] 07/11/2024 Other specified health statu s Unlisted special service; to be used for medical record reviews and reporting CPTII codes (1111F, etc) [facility] ([place] 07/11/2024 Unlisted special service; to be used for medical record reviews and reporting CPTII codes (1111F, etc) [facility] ([place] 07/11/2024 Estab. patient 20-29min; 1 stable chronic or 2 minor; add add modifier 95 for video, modifier 93 for phone [facility] ([place] 07/11/2024 FibromyalgiaHypertensive chr onic kidney disease w stg 1-4/unsp chr kdnyChronic kidney disease, stage 3 unspecifiedUnspecified asthma, uncomplicatedOther abnormalities of gait and mobilityOther problems related to medical facilities and other health care Estab. patient 20-29min; 1 stable chronic or 2 minor; add add modifier 95 for video, modifier 93 for phone [facility], ([place] 07/11/20[place] Estab. patient 20-29min; 1 stable chronic or 2 minor; add add modifier 95 for video, modifier 93 for phone [facility], ([place]) 07/11/2024 Estab. patient 20-29min; 1 stable chronic or 2 minor; add add modifier 95 for video, modifier 93 for phone [facility], ([place]) 07/11/2024 Estab. patient 20-29min; 1 stable chronic or 2 minor; add add modifier 95 for video, modifier 93 for phone [facility], ([place]) 07/11/2024 Estab. patient 20-29min; 1 stable chronic or 2 minor; add add modifier 95 for video, modifier 93 for phone [facility], ([place] 07/11/2024 Estab. patient 20-29min; 1 stable chronic or 2 minor; add add modifier 95 for video, modifier 93 for phone [facility], ([place]) 07/11/2024 Vital Signs Date of Collection Vitals 2022-07-27 12:14:40 Height - 149.86 cmWe ight - 58.97 kgBody Mass Index (BMI) - 26.26 kg/m2BP Diastolic - 84.0 mm[Hg]BP Systolic - 159.0 mm[Hg] 2023-09-01 10:58:45 Height - 149.86 cmWe ight - 59.87 kgBody Mass Index (BMI) - 26.66 kg/m2BP Diastolic - 93.0 mm[Hg]BP Systolic - 156.0 mm[Hg]Heart Rate - 68.0 /minRespiratory Rate - 14.0 /min 2024-07-11 09:26:59 Height - 149.86 cmWe ight - 58.51 kgBody Mass Index (BMI) - 26.05 kg/m2 Social History Social History Social History Observation Description Effec tive Time Current Smoking Status Never smoker 6 Sex Female History of Procedures Procedures Service Procedure code Service date Servicing provider Phone# New patient, 30-44min 1 stable chronic or 2 minor; add modifier 95 for video, modifier 93 for phone [id number] 2022-07-27 No Data Available No Data Available Medication List Documented (1159F) 1159F 2022-07-27 No Data Available No Data Smitha ilable Medication Review by prescribing provider or pharmacist documented (1160F) 1160F 2022-07-27 No Data Available No Data Smitha ilable Functional Status Assessed (1170F) 1170F 2022-07-27 No Data Available No Data Avail able Pain Assessment - Pain Documented on a Pain Scale (1125F) 1125F 2022-07-27 No Data Available No Data Smitha ilable Advance Care Directive Advance care planning discussion documented in the medical record (1158F) 1158F 2022-07-27 No Data Available No Data Availa ble BMI obtained (3008F) 3008F 2022-07-27 No Data Availab le No Data Available SBP >= 140 3077F 2022-07-27 No Data Available No Data Available DBP 80-89 (3079F) 3079F 2022-07-27 No Data Available No Data Available Unlisted special service; to be used for medical record reviews and reporting CPTII codes (1111F, etc) 96894 2023-03-08 No Data Available No Data Availa ble SBP < 130 (3074F) 3074F 2023-03-08 No Data Available No Data Available DBP <80 (3078F) 3078F 2023-03-08 No Data Available No Data Available Estab. patient 30-39min; chronic exacerbation, 2 stable chronic or 1 acute illness add add modifier 95 for video, (do not use for phone, instead use [id number]) 74924 2023-09-01 No Data Available No Data Availa ble Medication List Documented (1159F) 1159F 2023-09-01 No Data Available No Data Smitha ilable Medication Review by prescribing provider or pharmacist documented (1160F) 1160F 2023-09-01 No Data Available No Data Smitha ilable BMI obtained (3008F) 3008F 2023-09-01 No Data Availab le No Data Available Advance Care Directive Advance care planning discussion documented in the medical record (1158F) 1158F 2023-09-01 No Data Available No Data Availa ble Advance care planning discussed and documented advance care plan or surrogate decision-maker was documented in the medical record. (1123F) 1123F 2023-09-01 No Data Available No Data Availa ble Pain Assessment - Pain Documented on a Pain Scale (1125F) 1125F 2023-09-01 No Data Available No Data Smitha ilable Functional Status Assessed (1170F) 1170F 2023-09-01 No Data Available No Data Avail able SBP >= 140 3077F 2023-09-01 No Data Available No Data Available DBP >=90 3080F 2023-09-01 No Data Available No Data Available Unlisted special service; to be used for medical record reviews and reporting CPTII codes (1111F, etc) 20039 2024-07-11 No Data Available No Data Availa ble SBP < 130 (3074F) 3074F 2024-07-11 No Data Available No Data Available DBP <80 (3078F) 3078F 2024-07-11 No Data Available No Data Available Estab. patient 20-29min; 1 stable chronic or 2 minor; add add modifier 95 for video, modifier 93 for phone [id number] 2024-07-11 No Data Available No Data Availa ble Medication Review by prescribing provider or pharmacist documented (1160F) 1160F 2024-07-11 No Data Available No Data Smitha ilable Medication List Documented (1159F) 1159F 2024-07-11 No Data Available No Data Smitha ilable Functional Status Assessed (1170F) 1170F 2024-07-11 No Data Available No Data Avail able Pain Assessment - Pain Documented on a Pain Scale (1125F) 1125F 2024-07-11 No Data Available No Data Smitha ilable Advance Care Directive Advance care planning discussion documented in the medical record (1158F) 1158F 2024-07-11 No Data Available No Data Availa ble Advance care planning discussed and documented advance care plan or surrogate decision-maker was documented in the medical record. (1123F) 1123F 2024-07-11 No Data Available No Data Availa ble Functional Status Functional Category Effective Dates Cognition Status: Oriented to Person, Pl ramya and Time 2022-07-27 ADL Eating: Independent; Amb ulation: Some Help Needed; Dressing: Independent; Bathing: Independent; Toileting: Independent 2022-07-27 IADL Shopping: Some Help Nee ded; Housekeeping: Some Help Needed; Meal Prep: Some Help Needed; Medications Management: Independent 2022-07-27 Falls in last 6 Months: No 2022-07-27 Mental Status Status Date Appears to be AAOx3 at this time 2023-08 Assessments Date of Service Assessments 2022-07-27 12:14:40 FibromyalgiaRx: Shari pentinReports chronic pain, says medication is mildly effective. Has appointment with PCP in July.Essential hypertensionRx: Losartan, MetoprololHas BP cuff at home, says her BP has been running high, has not seen PCP for dose adjustment in months. Has appointment in July.AsthmaRx: FloventDenies SOB, or recent asthma exacerbations. Follows with PCP. 2023-09-01 10:58:45 FibromyalgiaOther pr oblems related to medical facilities and other health careEssential hypertensionAsthmaStage 3 chronic kidney disease 2024-07-11 09:26:59 Other problems relat ed to medical facilities and other health careFibromyalgiaEssential hypertensionAsthmaStage 3 chronic kidney diseaseOther problems related to medical facilities and other health careBalance disorder Plan of Care Date of Service Plans 2022-07-27 12:14:40 Pain Assessment - NO pain documented (1126F)Medication Review by prescribing provider or pharmacist documented (1160F)Medication List Documented (1159F)Functional Status Assessed (1170F)Advance Care Directive Advance care planning discussion documented in the medical record (1158F)BMI obtained (3008F)SBP >= 140DBP 80-89 (3079F)Televideo new patient,40-59min; chronic exacerbation, 2 stable chronic or 1 acute illness add modifier 95Continue to see PCP. Follow-up with [facility] as needed for any acute or disease education needs that may arise. 2023-03-08 09:25:32 Unlisted special ser vice; to be used for medical record reviews and reporting CPTII codes (1111F, etc)SBP < 130 (3074F)DBP <80 (3078F) 2023-09-01 10:58:45 Medication Review by prescribing provider or pharmacist documented (1160F)Medication List Documented (1159F)Functional Status Assessed (1170F)Advance Care Directive Advance care planning discussion documented in the medical record (1158F)BMI obtained (3008F)Televideo 30-39min; chronic exacerbation, 2 stable chronic or 1 acute illness add modifier 95Pain Assessment - Pain Documented (1125F)Advance care planning discussed and documented advance care plan or surrogate decision-maker was documented in the medical record. (1123F)Continue to see PCP. Follow-up with [facility] as needed for any acute or disease education needs that may arise.Rx: GabapentinReports chronic pain, says medication is mildly effective. Has appointment with PCP in July.Contingency Plan:Asthma, HTN, FibromyalgiaKidney function presumably at stage 3 CKD renal dosing recommendedMost recent hospitalization was r/t BP fluctuations- consider adding on Clonidine or Hydralazine for acute temporary management of blood pressure if BP very high without other symptoms.Rx: Losartan, MetoprololHas BP cuff at home, says her BP has been running high, has not seen PCP for dose adjustment in months. Has appointment in July.Rx: FloventDenies SOB, or recent asthma exacerbations. Follows with PCP.States she was seeing Dr. Cali and he diagnosed her with stage 3 CKD years ago but she has not been told anything else about it. States she was told it was stable, and she goes back every 3 months for monitoring.At least 50% of time spent counseling patient, discussing diagnosis, treatment plan, compliance, and coordinating follow-up careMember/caregiver reports no refills needed on medicationsor medical supplies at this time. 2024-07-11 09:22:26 Unlisted special ser vice; to be used for medical record reviews and reporting CPTII codes (1111F, etc)SBP < 130 (3074F)DBP <80 (3078F) 2024-07-11 09:26:59 Functional Status As sessed (1170F)Advance Care Directive Advance care planning discussion documented in the medical record (1158F)Advance care planning discussed and documented advance care plan or surrogate decision-maker was documented in the medical record. (1123F)Pain Assessment - Pain Documented (1125F)BMI obtained (3008F)Estab. patient 20-29min; 1 stable chronic or 2 minor; add add modifier 95 for video, modifier 93 for phoneContinue to see PCP. Follow-up with [facility] as needed for any acute or disease education needs that may arise.Contingency Plan:Asthma, HTN, FibromyalgiaKidney function presumably at stage 3 CKD renal dosing recommendedMost recent hospitalization was r/t BP fluctuations- consider adding on Clonidine or Hydralazine for acute temporary management of blood pressure if BP very high without other symptoms.Rx: GabapentinReports chronic pain, says medication is mildly effective. Has appointment with PCP in July. 07/11/24 : Continue current treatment plan as directed. Had a f/u with PCP on 04/20.Rx: Losartan, MetoprololHas BP cuff at home, says her BP has been running high, has not seen PCP for dose adjustment in months. Has appointment in July. 07/11/24 : Continue current treatment plan as directed. Had a f/u with PCP on 04/20.Rx: FloventDenies SOB, or recent asthma exacerbations. Follows with PCP. 07/11/24 : Continue current treatment plan as directed. Had a f/u with PCP on 04/20.States she was seeing Dr. Cali and he diagnosed her with stage 3 CKD years ago but she has not been told anything else about it. States she was told it was stable, and she goes back every 3 months for monitoring.HYPERTENSION CONTINGENCY PLANLast updated: 07/11/2024Member to call for the following symptoms: BP >180/100 / Chest pain / HeadachePlanned intervention: Assess for signs of end organ damage (headache, vision changes, chest pain)/ Frame Polisher on proper BP monitoring technique and reassess/ Increase current medication dose: Amlodipine to 10 mg/ Encourage low sodium diet/ Discuss breathing exercises/ Encourage medication adherenceReports balance issues and chronic pain in both legs d/t Fibromyalgia Poor strength in lower extremities. Requesting a rollator Goals Date Goal 2023-09-01 Continue taking medi cations as directed and keep all follow up appointments with established PCP and Specialist. 2024-07-11 Continue taking medi cations as directed and keep all follow up appointments with established PCP and Specialist. Health Concerns Date Concern 2024-07-11 Visit completed alfredo garcia audio/video.Patient/Guardian agreed to visit via telehealth. Today, patient has chief complaint of: follow up care and comprehensive review.Reviewed Allergies, Medications, Active Medical conditions, past medical/surgical history, Social history. 2024-07-11 <add details of Adva nce Care Planning conversation using Advance Care Plan ConversationDate of Conversation: 07/11/2024Life Limiting Diagnosis: Diagnosis:Currently on Hospice NoCode Status: NO CPR: Do Not Attempt Resuscitation/Allow Natural DeathGoals of Care: Comfort-focused: Maximize comfort through symptom management; allow natural deathNutrition goals: No artificial nutrition desiredDo you have a Durable Power of Combination Building Inspector for Healthcare, or Healthcare Proxy Or Guardianship? Yes, preferred proxy but not named POAIf so, Who? Todd Silva you have a written Advance Directive? Has no formal documentationOther details of discussion: Discussed with memberToday's plan:1123F : AD or surrogate was documented in the medical record. 2024-07-11 Most recent hospital stay(s) or ER visit(s) and precipitating factors: Denies 2024-07-11 Open HEDIS Measure [place]: Reviewed
[2025-06-02 17:08] LABS: Anion Gap 13 (12-20); Blood Urea Nitrogen 23 mg/dL (9-16); Calcium 9.4 mg/dL (8.4-10.2); Carbon Dioxide 24 mmol/L (22-29); Chloride 88 mmol/L (96-108); Creatinine Clr Calc Pharmacy 28.1; Estimated Glomerular Filt Rate 41; Potassium 4.0 mmol/L (3.3-5.1); Sodium 121 mmol/L (135-145)
--- NOTE | 2025-06-02 17:20 | P.HPHOSP_ITS ---
History of Present Illness Date of Service: 06/02/25 Chief Complaint: left shoulder pain 77F PMH hypertension, mild intermittent asthma, peripheral neuropathy, osteoarthritis, sciatica presented with left shoulder pain. Pain is worse with movement, denies any chest pain shortness breath. In ED noted to have incidental finding of sodium of 121 with chloride of 88. Patient is noted to be on hydrochlorothiazide. Review of Systems 2 Review of Systems: Yes all other systems are reviewed and are negative [facility] Medical History Mild intermittent asthma Neuropathy Osteoarthritis Sciatica HTN (hypertension) Social History Patient Tobacco Use Status: Never used Tobacco Smoked in Last 30 Days: No Use of substances other than those prescribed or required for medical reasons: No Advance Directives: No Advance Directives Information Provided: No Do you have a plan to hurt others: No Plan service: No Meds Allergies Allergy/AdvReac Type Severity Reaction Status Date / Time tramadol AdvReac Mild Nausea Verified 06/02/25 15:42 Active Medications: Current Medications Acetaminophen (Acetaminophen 325 Mg Tablet) 650 mg PO Q6H PRN PRN Reason: Pain, Mild 1-3,fever,headache Calcium Carbonate (Calcium Carbonate 750 Mg Tab.Chew) 750 mg PO Q4H PRN PRN Reason: Heartburn Enoxaparin Sodium (Enoxaparin Sodium 40 Mg/0.4 Ml Syringe) 40 mg SUBCUT Q24H [facility] Sodium Chloride (Ns) 1,000 mls @ 50 mls/hr IVCONT .Q20H [facility] Stop: 06/03/25 03:14 Magnesium Hydroxide (Milk Of Magnesia 30 Ml Oral.Susp) 30 ml PO DAILY PRN PRN Reason: Constipation Melatonin (Melatonin 3 Mg Tablet) 6 mg PO BEDTIME PRN PRN Reason: Insomnia Sodium Chloride (0.9 % Sodium Chloride Flush 3 Ml Syringe) 3 ml IVFLUSH QSHIFT [facility] Home Medications ?Medication ?Instructions ?Recorded ?Confirmed ?Last Taken ?Type aspirin 81 mg chewable tablet 81 mg PO DAILY 06/09/23 06/09/23 Unknown History gabapentin 600 mg tablet 1,200 mg PO TID 06/09/23 Unknown History losartan 100 mg tablet 100 mg PO BEDTIME 06/09/23 1 08/10/22 Unknown History metoprolol succinate 50 mg 50 mg PO DAILY 06/09/23 Unknown History tablet,extended release 24 hr fluticasone propionate 110 1 puff inhalation BID 06/1006/10/23 Unknown History mcg/actuation HFA aerosol inhaler (Flovent HFA) Physical Exam 2 Vital Signs and Narrative: Vital Signs: Last Vital Signs Temp 98.1 F 06/02/25 16:34 Pulse 61 06/02/25 16:34 Resp 18 06/02/25 16:34 BP 152/83 H 06/02/25 16:34 Pulse Ox 97 06/02/25 16:34 O2 Del Method Room Air 06/02/25 16:34 BMI result Body Mass Index 25.4 General: AO X 3, no acute distress Resp: CTA bilateral, no accessory muscles used CVS: S1,S2,RRR GI: soft, non tender, non distended Neuro: motor grossly intact, alert Psych: appropriate affect, appropriate insight Results Labs 06/02/25 15:53 06/02/25 16:48 Labs: Laboratory Results - last 24 hr 06/02/25 06/02/25 15:53 16:48 MCV 92.3 MCH 32.4 MCHC 35.1 H RDW 12.7 Plt Count 327 D MPV 8.2 L Immature Gran % (Auto) 0.3 Neut % (Auto) 56.8 Lymph % (Auto) 32.4 [place] % (Auto) 9.8 Eos % (Auto) 0.5 Baso % (Auto) 0.2 Lymph # (Auto) 2.1 [place] # (Auto) 0.6 Eos # (Auto) 0.0 Baso # (Auto) 0.0 Abs Immat Gran (auto) 0.02 Absolute Neuts (auto) 3.7 Absolute Nucleated RBC 0.000 Nucleated RBC % (auto) 0.0 Anion Gap 13 13 Estim Creat Clear Calc 27.4 28.1 Estimated GFR 40 41 Random Glucose 86 93 Calcium 9.5 9.4 Magnesium 2.0 Total Bilirubin 0.9 AST 36 H ALT 29 Alkaline Phosphatase 93 Troponin I High Sens < 2.7 Total Protein 7.3 Albumin 4.7 Ur Random Sodium 39.0 Assessment and Plan (1) Acute hyponatremia: Status: Acute Plan 77F PMH hypertension, mild intermittent asthma, peripheral neuropathy, osteoarthritis, sciatica presented with left shoulder pain Severe acute hyponatremia Likely due to hydrochlorothiazide Hold hydrochlorothiazide, slow hydration with IV normal saline 50cc/hr for 500 cc, monitor sodium closely, nephrology eval Hypertension Holding hydrochlorothiazide, continue other antihypertensives Mild intermittent asthma Stable DVT prophylaxis with Lovenox DNR/DNI Given degree of hyponatremia and need for close monitoring and ensuring avoidance of over-correction expected require at least 2 midnights inpatient Quality Stroke Does the patient have a stroke diagnosis?: No VTE Prior VTE?: No VTE Risk Level:: Medical - moderate - high VTE Device Contraindication: Treatment Not Indicated VTE Drug Contraindication: N/A - Med Ordered
[2025-06-02 17:30] LABS: Troponin-I High Sensitivity < 2.7 ng/L (<3.5-17.0)
[2025-06-02 18:09] VITALS: BP 148/74; PULSE 62; RESP 16; TEMP 36.6; O2SAT 96
--- NOTE | 2025-06-02 18:28 | PHA.MEDREC ---
Addendum entered by Keaton Ramirez 06/02/25 18:47: 12/6- Patient told by provider in ED to stop taking Spironolactone w/ HCTZ 25 mg Tab. Patient took this medication last night. Original Note: Pharmacy Consult ? Medication Reconciliation Pharmacy has completed the medication reconciliation. Confirmed medication list with patient and against pharmacy claims. Patient takes all daily medications at nighttime. Patient took morning and afternoon doses of gabapentin today.
--- NOTE | 2025-06-02 19:24 | HO.NURTONUR ---
Pt is a 79 y.o. female coming in with left shoulder pain and neck pain. PMH Mild intermittent asthma Neuropathy Osteoarthritis Sciatica HTN (hypertension). Shoulder xray neg for acute fx. Labs revealed low sodium 121 and low chloride 88. Primarily [place]an speaking, a&ox4. VSS. 20 g IV in the left AC. Fluids running 50 mL/hr.
--- NOTE | 2025-06-02 19:52 | PC.NURSE ---
Pt ambulated to bathroom with steady gait. Awaiting transport to go upstairs.
[2025-06-02 20:52] VITALS: BP 145/82; PULSE 93; RESP 18; TEMP 36.3; O2SAT 100
[2025-06-02 22:07] LABS: Anion Gap 11 (12-20); Blood Urea Nitrogen 20 mg/dL (9-16); Calcium 9.0 mg/dL (8.4-10.2); Carbon Dioxide 26 mmol/L (22-29); Chloride 88 mmol/L (96-108); Creatinine Clr Calc Pharmacy 31.5; Estimated Glomerular Filt Rate 47; Potassium 3.6 mmol/L (3.3-5.1); Sodium 121 mmol/L (135-145)
[2025-06-03 03:28] VITALS: BP 114/79; PULSE 56; RESP 18; TEMP 36.3; O2SAT 100
[2025-06-03 06:24] LABS: Anion Gap 11 (12-20); Blood Urea Nitrogen 17 mg/dL (9-16); Calcium 9.2 mg/dL (8.4-10.2); Carbon Dioxide 25 mmol/L (22-29); Chloride 92 mmol/L (96-108); Creatinine Clr Calc Pharmacy 34.0; Estimated Glomerular Filt Rate 52; Magnesium 1.9 mg/dL (1.6-2.6); Potassium 4.0 mmol/L (3.3-5.1); Sodium 124 mmol/L (135-145)
[2025-06-03 06:28] LABS: Hematocrit 36.3 % (37.0-47.0); Hemoglobin 12.8 g/dl (12.0-16.0); Mean Corpuscular HGB Conc 35.3 g/dl (31.0-35.0); Mean Corpuscular Hemoglobin 32.7 pg (27.0-33.0); Mean Corpuscular Volume 92.6 fL (80.0-98.0); NRBC Abs Auto 0.000 X10*3/uL (0.0-0.012); NRBC Pct Auto 0.0 /100WBC (0.0-0.2); Platelet Count 284 X10*3/uL (160-400); Red Blood Count 3.92 X10*6/uL (4.20-5.50); White Blood Count 5.7 X10*3/uL (4.8-10.8)
[2025-06-03 06:50] VITALS: BP 105/59; PULSE 61; RESP 16; TEMP 36.6; O2SAT 97
[2025-06-03] MEDS: Metoprolol Succinate ER 100 MG TAB.ER.24H PO (08:02)
[2025-06-03] MEDS: oxyCODONE HCl Immed Release 5 MG TABLET PO (08:03)
[2025-06-03] MEDS: Sodium Chloride Tab 1 GM TABLET PO ×3 (08:03→20:55)
--- NOTE | 2025-06-03 09:50 | HO.PM.IMPN ---
Subjective Subjective Date of Service: 06/03/25 Interval History: left shoulder pain Physical Exam Exam: Exam: General: AO X 3, no acute distress Resp: CTA bilateral, no accessory muscles used CVS: S1,S2,RRR GI: soft, non tender, non distended Neuro: motor grossly intact, alert Psych: appropriate affect, appropriate insight Vital Signs: Vital Signs: Last Vital Signs Temp 97.9 F 06/03/25 06:50 Pulse 61 06/03/25 06:50 Resp 16 06/03/25 06:50 BP 105/59 L 06/03/25 06:50 Pulse Ox 97 06/03/25 06:50 O2 Del Method Room Air 06/03/25 06:50 BMI result Body Mass Index 25.4 Objective Data Active Medications Acetaminophen (Acetaminophen 325 Mg Tablet) 650 mg PO Q6H PRN PRN Reason: Pain, Mild 1-3,fever,headache Aspirin (Aspirin 81 Mg Tab.Chew) 81 mg PO DAILY [facility] Last Admin: 06/03/25 08:02 Dose: 81 mg Documented By: MARK Calcium Carbonate (Calcium Carbonate 750 Mg Tab.Chew) 750 mg PO Q4H PRN PRN Reason: Heartburn Enoxaparin Sodium (Enoxaparin Sodium 30 Mg/0.3 Ml Syringe) 30 mg SUBCUT Q24H [facility] Last Admin: 06/03/25 08:04 Dose: 30 mg Documented By: MARK Gabapentin (Gabapentin 600 Mg Tablet) 1,200 mg PO TID [facility] Last Admin: 06/03/25 08:02 Dose: 1,200 mg Documented By: MARK Sodium Chloride (Ns) 1,000 mls @ 50 mls/hr IVCONT .Q20H [facility] Last Admin: 06/03/25 07:18 Dose: 50 mls/hr Documented By: MARK Loratadine (Loratadine 10 Mg Tablet) 10 mg PO DAILY [facility] Last Admin: 06/03/25 08:02 Dose: 10 mg Documented By: MARK Losartan Potassium (Losartan Potassium 50 Mg Tablet) 100 mg PO BEDTIME [facility]; Protocol Magnesium Hydroxide (Milk Of Magnesia 30 Ml Oral.Susp) 30 ml PO DAILY PRN PRN Reason: Constipation Melatonin (Melatonin 3 Mg Tablet) 6 mg PO BEDTIME PRN PRN Reason: Insomnia Metoprolol Succinate (Metoprolol Succinate Er 100 Mg Tab.Er.24h) 100 mg PO DAILY [facility]; Protocol Last Admin: 06/03/25 08:02 Dose: 100 mg Documented By: MARK Oxycodone HCl (Oxycodone Hcl Immed Release 5 Mg Tablet) 5 mg PO Q6H PRN PRN Reason: Pain, Severe (Pain Scale 7-10) Last Admin: 06/03/25 08:03 Dose: 5 mg Documented By: MARK Sodium Chloride (0.9 % Sodium Chloride Flush 3 Ml Syringe) 3 ml IVFLUSH QSHIFT [facility] Last Admin: 06/03/25 07:18 Dose: Not Given Documented By: MARK Non-Admin Reason: IV Running Sodium Chloride (Sodium Chloride Tab 1 Gm Tablet) 1 gm PO TID [facility] Last Admin: 06/03/25 08:03 Dose: 1 gm Documented By: MARK Labs 06/03/25 05:49 06/03/25 05:49 Labs: Laboratory Results - last 24 hr 06/02/25 06/02/25 06/02/25 15:53 16:48 21:48 MCV 92.3 MCH 32.4 MCHC 35.1 H RDW 12.7 Plt Count 327 D MPV 8.2 L Immature Gran % (Auto) 0.3 Neut % (Auto) 56.8 Lymph % (Auto) 32.4 [place] % (Auto) 9.8 Eos % (Auto) 0.5 Baso % (Auto) 0.2 Lymph # (Auto) 2.1 [place] # (Auto) 0.6 Eos # (Auto) 0.0 Baso # (Auto) 0.0 Abs Immat Gran (auto) 0.02 Absolute Neuts (auto) 3.7 Absolute Nucleated RBC 0.000 Nucleated RBC % (auto) 0.0 Anion Gap 13 13 11 L Estim Creat Clear Calc 27.4 28.1 31.5 Estimated GFR 40 41 47 Random Glucose 86 93 138 H Calcium 9.5 9.4 9.0 Magnesium 2.0 Total Bilirubin 0.9 AST 36 H ALT 29 Alkaline Phosphatase 93 Troponin I High Sens < 2.7 < 2.7 Total Protein 7.3 Albumin 4.7 Urine Osmolality 309 L Ur Random Sodium 39.0 06/03/25 05:49 MCV 92.6 MCH 32.7 MCHC 35.3 H RDW 12.7 Plt Count 284 MPV 8.4 L Immature Gran % (Auto) Neut % (Auto) Lymph % (Auto) [place] % (Auto) Eos % (Auto) Baso % (Auto) Lymph # (Auto) [place] # (Auto) Eos # (Auto) Baso # (Auto) Abs Immat Gran (auto) Absolute Neuts (auto) Absolute Nucleated RBC 0.000 Nucleated RBC % (auto) 0.0 Anion Gap 11 L Estim Creat Clear Calc 34.0 Estimated GFR 52 Random Glucose 92 Calcium 9.2 Magnesium 1.9 Total Bilirubin AST ALT Alkaline Phosphatase Troponin I High Sens Total Protein Albumin Urine Osmolality Ur Random Sodium Assessment and Plan (1) Acute hyponatremia: Status: Acute Plan 77F PMH hypertension, mild intermittent asthma, peripheral neuropathy, osteoarthritis, sciatica presented with left shoulder pain Severe acute hyponatremia Likely due to hydrochlorothiazide Hold hydrochlorothiazide, slow hydration with IV normal saline monitor sodium closely, nephrology eval Hypertension Holding hydrochlorothiazide, continue other antihypertensives Mild intermittent asthma Stable DVT prophylaxis with Lovenox DNR/DNI reason for continued hospitalization:monitoring sodium Quality Stroke Does the patient have a stroke diagnosis?: No VTE Prior VTE?: No VTE Risk Level:: Medical - moderate - high VTE Device Contraindication: Treatment Not Indicated VTE Drug Contraindication: N/A - Med Ordered
[2025-06-03 12:20] LABS: Sodium 122 mmol/L (135-145)
[2025-06-03 15:15] VITALS: BP 101/53; PULSE 57; RESP 12; TEMP 35.8; O2SAT 97
--- NOTE | 2025-06-03 16:41 | MHC.CM.PN ---
PT REPORTS SHE LIVES WITH FAMILY AND IS INDEPENDENT WITH SELF CARE SHE SAYS HER NIECE IS HER SENIOR BUYER SHE HAS A CANE AND A WALKER REFUSING A HCP PCP: LUZ GRIGGS [facility]MM DELIVERED DCP: HOME, RESUME FAMILY SUPPORT FAMILY TO TRANSPORT
[2025-06-03 19:18] VITALS: BP 109/53; PULSE 59; TEMP 35.8; O2SAT 97
[2025-06-04] MEDS: oxyCODONE HCl Immed Release 5 MG TABLET PO ×3 (02:15→14:17)
[2025-06-04 03:36] VITALS: BP 102/57; PULSE 66; RESP 14; TEMP 36; O2SAT 97
[2025-06-04 06:27] LABS: Hematocrit 32.8 % (37.0-47.0); Hemoglobin 11.2 g/dl (12.0-16.0); Mean Corpuscular HGB Conc 34.1 g/dl (31.0-35.0); Mean Corpuscular Hemoglobin 32.3 pg (27.0-33.0); Mean Corpuscular Volume 94.5 fL (80.0-98.0); NRBC Abs Auto 0.000 X10*3/uL (0.0-0.012); NRBC Pct Auto 0.0 /100WBC (0.0-0.2); Platelet Count 276 X10*3/uL (160-400); Red Blood Count 3.47 X10*6/uL (4.20-5.50); White Blood Count 5.3 X10*3/uL (4.8-10.8)
[2025-06-04 06:49] LABS: Blood Urea Nitrogen 29 mg/dL (9-16); Calcium 8.5 mg/dL (8.4-10.2); Creatinine Clr Calc Pharmacy 23.2; Estimated Glomerular Filt Rate 33
[2025-06-04 06:51] LABS: Blood Urea Nitrogen 29 mg/dL (9-16); Calcium 8.6 mg/dL (8.4-10.2); Creatinine Clr Calc Pharmacy 23.0; Estimated Glomerular Filt Rate 33; Uric Acid 4.8 mg/dL (2.4-5.7)
[2025-06-04 06:55] LABS: Anion Gap 10 (12-20); Carbon Dioxide 24 mmol/L (22-29); Chloride 97 mmol/L (96-108); Potassium 5.2 mmol/L (3.3-5.1); Sodium 126 mmol/L (135-145)
[2025-06-04 07:07] LABS: Thyroid Stimulating Hormone 2.81 uIU/mL (0.32-4.0)
[2025-06-04 07:24] LABS: Anion Gap 12 (12-20); Carbon Dioxide 23 mmol/L (22-29); Chloride 96 mmol/L (96-108); Potassium 5.1 mmol/L (3.3-5.1); Sodium 126 mmol/L (135-145)
--- NOTE | 2025-06-04 07:24 | P.PNIM_ITS ---
Subjective Subjective Date of Service: 06/04/25 Interval History: Obtaining imaging rule out any intra nephric pathology We will start the patient on fluid restriction We will check sodium in the a.m. Review of Systems Review of Systems: Yes all other systems are reviewed and are negative Physical Exam 2 Exam: Exam: General: AO X 3, no acute distress Resp: CTA bilateral, no accessory muscles used CVS: S1,S2,RRR GI: soft, non tender, non distended Neuro: motor grossly intact, alert Psych: appropriate affect, appropriate insight Vital Signs: Vital Signs: Last Vital Signs Temp 96.8 F 06/04/25 03:36 Pulse 66 06/04/25 03:36 Resp 14 06/04/25 03:36 BP 102/57 L 06/04/25 03:36 Pulse Ox 97 06/04/25 03:36 O2 Del Method Room Air 06/04/25 03:36 BMI result Body Mass Index 25.4 Objective Data Active Medications Acetaminophen (Acetaminophen 325 Mg Tablet) 650 mg PO Q6H PRN PRN Reason: Pain, Mild 1-3,fever,headache Aspirin (Aspirin 81 Mg Tab.Chew) 81 mg PO DAILY [facility] Last Admin: 06/03/25 08:02 Dose: 81 mg Documented By: MARK Calcium Carbonate (Calcium Carbonate 750 Mg Tab.Chew) 750 mg PO Q4H PRN PRN Reason: Heartburn Enoxaparin Sodium (Enoxaparin Sodium 30 Mg/0.3 Ml Syringe) 30 mg SUBCUT Q24H [facility] Last Admin: 06/03/25 08:04 Dose: 30 mg Documented By: MARK Gabapentin (Gabapentin 600 Mg Tablet) 1,200 mg PO TID [facility] Last Admin: 06/03/25 20:55 Dose: 1,200 mg Documented By: VIVIANA Sodium Chloride (Ns) 1,000 mls @ 50 mls/hr IVCONT .Q20H [facility] Last Admin: 06/04/25 03:36 Dose: 50 mls/hr Documented By: VIVIANA Loratadine (Loratadine 10 Mg Tablet) 10 mg PO DAILY [facility] Last Admin: 06/03/25 08:02 Dose: 10 mg Documented By: MARK Losartan Potassium (Losartan Potassium 50 Mg Tablet) 100 mg PO BEDTIME [facility]; Protocol Last Admin: 06/03/25 20:55 Dose: 100 mg Documented By: VIVIANA Magnesium Hydroxide (Milk Of Magnesia 30 Ml Oral.Susp) 30 ml PO DAILY PRN PRN Reason: Constipation Melatonin (Melatonin 3 Mg Tablet) 6 mg PO BEDTIME PRN PRN Reason: Insomnia Metoprolol Succinate (Metoprolol Succinate Er 100 Mg Tab.Er.24h) 100 mg PO DAILY [facility]; Protocol Last Admin: 06/03/25 08:02 Dose: 100 mg Documented By: MARK Oxycodone HCl (Oxycodone Hcl Immed Release 5 Mg Tablet) 5 mg PO Q6H PRN PRN Reason: Pain, Severe (Pain Scale 7-10) Last Admin: 06/04/25 02:15 Dose: 5 mg Documented By: VIVIANA Sodium Chloride (0.9 % Sodium Chloride Flush 3 Ml Syringe) 3 ml IVFLUSH QSHIFT [facility] Last Admin: 06/03/25 23:13 Dose: Not Given Documented By: VIVIANA Non-Admin Reason: IV Running Sodium Chloride (Sodium Chloride Tab 1 Gm Tablet) 1 gm PO TID [facility] Last Admin: 06/03/25 20:55 Dose: 1 gm Documented By: VIVIANA Labs 06/04/25 05:55 06/04/25 05:55 Labs: Laboratory Results - last 24 hr 06/03/25 06/04/25 06/04/25 Unknown 05:55 05:55 MCV 94.5 MCH 32.3 MCHC 34.1 RDW 12.9 Plt Count 276 MPV 8.7 L Absolute Nucleated RBC 0.000 Nucleated RBC % (auto) 0.0 Anion Gap 10 L Estim Creat Clear Calc 23.0 23.2 Estimated GFR 33 Random Glucose Uric Acid Calcium TSH Random Cortisol Urine Osmolality 190 L Ur Random Sodium 22.0 06/04/25 06/04/25 06/04/25 05:55 05:55 05:55 MCV MCH MCHC RDW Plt Count MPV Absolute Nucleated RBC Nucleated RBC % (auto) Anion Gap Estim Creat Clear Calc Estimated GFR 33 Random Glucose 105 106 Uric Acid 4.8 Calcium 8.6 D 8.5 TSH 2.81 Random Cortisol 5.5 Urine Osmolality Ur Random Sodium Assessment and Plan (1) Acute hyponatremia: Status: Acute Plan 77F PMH hypertension, mild intermittent asthma, peripheral neuropathy, osteoarthritis, sciatica presented with left shoulder pain Severe acute hyponatremia Likely due to hydrochlorothiazide Hold hydrochlorothiazide, fluid restriction, salt tabs t.i.d., ultrasound kidney, nephrology eval, daily labs Hypertension Currently hypotensive, we will hold losartan Holding hydrochlorothiazide, continue other antihypertensives Bradycardia Hold home metoprolol Peripheral neuropathy Continue home gabapentin Mild intermittent asthma Stable Left shoulder pain Likely musculoskeletal, reproducible PTOT eval DVT prophylaxis with Lovenox DNR/DNI reason for continued hospitalization:monitoring sodium Quality Stroke Does the patient have a stroke diagnosis?: No VTE Prior VTE?: No VTE Risk Level:: Medical - moderate - high VTE Device Contraindication: Treatment Not Indicated VTE Drug Contraindication: N/A - Med Ordered
[2025-06-04 07:28] VITALS: BP 105/56; PULSE 58; RESP 16; TEMP 36.1; O2SAT 98
[2025-06-04] MEDS: Sodium Chloride Tab 1 GM TABLET PO ×3 (08:09→20:18)
[2025-06-04 15:18] VITALS: BP 102/55; PULSE 64; RESP 18; TEMP 36.1; O2SAT 96
--- NOTE | 2025-06-04 15:41 | MHC.CM.PN ---
PT NOT YET MEDICALLY CLEARED, PLAN FOR PT AND OT EVALS DCP: HOME WITH RESUMPTION OF FAMILY SUPPORT VS WITH [facility] FAMILY TO TRANSPORT
[2025-06-04 19:15] VITALS: BP 124/58; PULSE 69; RESP 18; TEMP 36.6; O2SAT 96
[2025-06-05 03:26] VITALS: BP 109/54; PULSE 66; RESP 14; TEMP 36; O2SAT 97
[2025-06-05 06:33] LABS: MANUAL DIFF FLAG NO
[2025-06-05 06:38] LABS: Hematocrit 34.0 % (37.0-47.0); Hemoglobin 11.4 g/dl (12.0-16.0); Imm Gran Abs Auto 0.01 X10*3/uL (0.00-0.03); Imm Gran Pct Auto 0.2 % (0.0-0.4); Lymphocytes Absolute Auto 1.2 X10*3/uL (1.2-4.9); Mean Corpuscular HGB Conc 33.5 g/dl (31.0-35.0); Mean Corpuscular Hemoglobin 32.4 pg (27.0-33.0); Mean Corpuscular Volume 96.6 fL (80.0-98.0); NRBC Abs Auto 0.000 X10*3/uL (0.0-0.012); NRBC Pct Auto 0.0 /100WBC (0.0-0.2); Platelet Count 258 X10*3/uL (160-400); Red Blood Count 3.52 X10*6/uL (4.20-5.50); White Blood Count 4.6 X10*3/uL (4.8-10.8)
[2025-06-05 06:59] LABS: Alanine Aminotransferase 21 U/L (0-31); Albumin Level 3.8 g/dL (3.5-5.0); Alkaline Phosphatase 83 U/L (39-117); Anion Gap 8 (12-20); Aspartate Amino Transferase 27 U/L (5-31); Blood Urea Nitrogen 26 mg/dL (9-16); Calcium 8.9 mg/dL (8.4-10.2); Carbon Dioxide 25 mmol/L (22-29); Chloride 105 mmol/L (96-108); Creatinine Clr Calc Pharmacy 30.8; Estimated Glomerular Filt Rate 46; Magnesium 2.0 mg/dL (1.6-2.6); Potassium 5.3 mmol/L (3.3-5.1); Sodium 133 mmol/L (135-145); Total Protein 5.9 g/dL (6.5-8.0)
[2025-06-05 07:34] VITALS: BP 153/72; PULSE 63; RESP 16; TEMP 36.1; O2SAT 100
[2025-06-05] MEDS: oxyCODONE HCl Immed Release 5 MG TABLET PO (07:48)
[2025-06-05] MEDS: Sodium Chloride Tab 1 GM TABLET PO (07:49)
--- NOTE | 2025-06-05 14:13 | MHC.CM.PN ---
DP: PT HAS BEEN MEDICALLY CLEARED FOR DC HOME, NO SERVICES. SON WILL TRANSPORT.
--- NOTE | 2025-06-05 14:43 | P.DS_ITS ---
DS: Providers Provider Date of Service: 06/05/25 Date of admission: 06/02/25 17:11 Date of discharge: 06/05/25 Primary care physician: Betito Espinoza III, MD Consults: 06/02/25 17:10 Consult to Nephrology Routine Consulting Provider: [facility] Reason for consultation: hpyonatremia DS: Diagnosis Discharge Diagnosis (1) Acute hyponatremia: Status: Acute DS: Summary Hospital Course Hospital Course: H&P:Chief Complaint: left shoulder pain 77F PMH hypertension, mild intermittent asthma, peripheral neuropathy, osteoarthritis, sciatica presented with left shoulder pain. Pain is worse with movement, denies any chest pain shortness breath. In ED noted to have incidental finding of sodium of 121 with chloride of 88. Patient is noted to be on hydrochlorothiazide. Hospital course: Acute hyponatremia: 77F PMH hypertension, mild intermittent asthma, peripheral neuropathy, osteoarthritis, sciatica presented with left shoulder pain found to have incid ental acute hyponatremia #Severe acute hyponatremia Likely due to hydrochlorothiazide Hold hydrochlorothiazide, fluid restriction, salt tabs t.i.d., ultrasound kidney, nephrology eval, daily labs #Hypertension Currently hypotensive, we held hydrochlorothiazide and started amlodipine , continued losartan Follow up with PCP in outpatient settings for further optimization. #Bradycardia Hold home metoprolol , resume after evaluation with PCP #Peripheral neuropathy Continue home gabapentin #Mild intermittent asthma Stable #Left shoulder pain Likely musculoskeletal, reproducible PTOT eval DVT prophylaxis with Lovenox DNR/DNI Patient deemed hemodynamically stable for discharge. PCP follow-up within a week BMP to be followed by PCP Time spent discussing smoking cessation with patient: more than 10 minutes Status at Discharge Functional status at discharge: wheelchair bound Overall status at discharge: patient is progressing back to baseline Time Attestation Discharge Coordination Time (in mins): 45 minutes Quality: Safe Use of Opioids Does Pt have an Active Cancer Diagnosis on the Problem List?: No Quality: Stroke Does the patient have a stroke diagnosis?: No Physical Exam Vital Signs: Vital Signs: Last Vital Signs Temp 96.9 F 06/05/25 07:34 Pulse 63 06/05/25 07:34 Resp 16 06/05/25 07:34 BP 153/72 H 06/05/25 07:34 Pulse Ox 100 06/05/25 07:34 O2 Del Method Room Air 06/05/25 07:34 BMI result Body Mass Index 25.4 DS: Data Data Completed and Pending Labs on day of discharge: Laboratory Results - last 24 hr 06/05/25 05:46 WBC 4.6 L RBC 3.52 L Hgb 11.4 L Hct 34.0 L MCV 96.6 MCH 32.4 MCHC 33.5 RDW 13.4 Plt Count 258 MPV 8.8 L Immature Gran % (Auto) 0.2 Neut % (Auto) 62.9 Lymph % (Auto) 26.8 [place] % (Auto) 9.3 Eos % (Auto) 0.6 Baso % (Auto) 0.2 Lymph # (Auto) 1.2 [place] # (Auto) 0.4 Eos # (Auto) 0.0 Baso # (Auto) 0.0 Abs Immat Gran (auto) 0.01 Absolute Neuts (auto) 2.9 Absolute Nucleated RBC 0.000 Nucleated RBC % (auto) 0.0 Sodium 133 L Potassium 5.3 H Chloride 105 Carbon Dioxide 25 Anion Gap 8 L BUN 26 H Creatinine 1.14 Estim Creat Clear Calc 30.8 Estimated GFR 46 Random Glucose 90 Calcium 8.9 Magnesium 2.0 Total Bilirubin 0.3 AST 27 ALT 21 Alkaline Phosphatase 83 Total Protein 5.9 L Albumin 3.8 Discharge Plan Discharge Anticipated Discharge Date/Time: 06/05/25 13:31 Patient Disposition: Home, Self-Care Discharge Diagnosis: Acute hyponatremia likely secondary to thiazide diuretics Referrals: Betito Espinoza III, MD [Primary Care Provider, Medical] - 1 Week Discharge Medications: New sodium chloride 1,000 mg Tablet,Soluble 1,000 mg PO TID 7 Days Qty: 21 0RF amlodipine 10 mg tablet 10 mg PO DAILY 30 Days Qty: 30 3RF Continued gabapentin 600 mg Tablet 1,200 mg PO TID aspirin 81 mg Tablet,Chewable 81 mg PO DAILY losartan 100 mg Tablet 100 mg PO BEDTIME cetirizine 10 mg tablet 10 mg PO DAILY metoprolol succinate 100 mg tablet extended release 24 hr 100 mg PO DAILY prednisone 20 mg tablet 40 mg PO DAILY Qty: 8 0RF Discontinued spironolacton-hydrochlorothiaz 25-25 mg tablet 0.5 tab PO BEDTIME Rx Instructions: 06/02- per patient provider, patient told to stop taking in ED. Discharge Orders: Discharge Order (Routine); Ordered 06/05/25 Ordered By: Jocelyne Smith Diet: Low salt diet Activity on Discharge: As tolerated Stand Alone Forms: Patient Portal Discharge page Print Language: Turkmen Activity Restrictions/Additional Instructions: Fluid restriction to 1.5 L a day Certainly. Here is a discharge instruction template for?acute hyponatremia due to thiazide diuretic, with a specific fluid restriction of 1.5 liters per day: Discharge Instructions: Acute Hyponatremia (Low Sodium) due to Thiazide Diuretic Diagnosis: You have been diagnosed with low sodium (hyponatremia) caused by your thiazide diuretic medication. What this means: Thiazide diuretics, which are often used to treat high blood pressure or swelling, can sometimes cause your body to lose too much sodium. Low sodium can lead to symptoms such as confusion, weakness, headache, nausea, or more serious complications if not managed properly. Instructions: * Fluid Restriction: * Limit your total fluid intake to?1.5 liters (about 50 ounces) per day. * This includes all liquids: water, coffee, tea, juice, milk, soup, and any other beverages. * Use a measuring cup or water bottle to help you keep track of your intake. * Avoid drinking extra fluids, even if you feel thirsty, unless otherwise instructed. * Medication: * Do not restart your thiazide diuretic unless specifically instructed by your healthcare provider. * Take all other medications as prescribed. * If you have been given a new medication for your sodium or blood pressure, take it as directed. * Diet: * Follow any dietary recommendations provided by your healthcare team. * You may be advised to increase your dietary salt intake?follow specific instructions if given. * Monitor for Symptoms: * Watch for signs of low sodium: confusion, severe headache, nausea, vomiting, muscle cramps, weakness, or seizures. * If you experience any of these symptoms, seek medical attention immediately. * Follow-up: * Attend all follow-up appointments for repeat blood tests to monitor your sodium levels. * Bring a list of all your medications to your next appointment. When to Seek Immediate Medical Attention: * Severe confusion or difficulty waking up * Seizures * Severe vomiting or inability to keep fluids down * New or worsening weakness Contact Information: If you have questions or concerns, contact your primary care provider Fluid restriction is a ramirez part of your recovery. Please follow these instructions carefully to help restore your sodium levels safely. It is very important that you follow up with the PCP within a week to check your sodium levels again Care Plan Goals: See above Health Concerns: See above Plan of Treatment: Stopping thiazide diuretics, starting amlodipine 10 mg Fluid restriction to 1.5 L a day BMP within a week with her PCP for follow-up Outpatient management, outpatient physical therapy for left shoulder osteoarthritis Assessment: See above
== END 2025-06-05 15:16 | disposition home or self-care (01) | DRG 641 ==
LOC: HO.ED 17:15 → HO.EDOVER 17:18 → HO.S3 19:11
PROVIDERS: Internal Medicine Critical Care Medicine; Physician Assistant Medical; Admitting Provider Internal Medicine; Emergency Provider Emergency Medicine Emergency Medical Services; PCP Internal Medicine; Visit Provider Student in an Organized Health Care Education/Training Program
DX: E87.1 Hypo-osmolality and hyponatremia (principal); J45.20 Mild intermittent asthma, uncomplicated; M25.512 Pain in left shoulder; R00.1 Bradycardia, unspecified; T50.2X5A Adverse effect of carbonic-anhydrase inhibitors, benzothiadiazides and other diuretics, initial encounter; G62.9 Polyneuropathy, unspecified; Z66 Do not resuscitate; Z79.899 Other long term (current) drug therapy
CPT/HCPCS: 36415; 73030; 76775; 80048; 80053; 82533; 83735; 83935; 84295; 84300; 84443; 84484; 84550; 85025; 85027; 93005; 97161; 97165; 99285; J1650

== ENCOUNTER → 2025-06-02 15:42 | Outpatient (BNV) | payer OTHER, SELFPAY | PROVIDERS: Admitting Provider Internal Medicine; Emergency Provider Emergency Medicine Emergency Medical Services; PCP Internal Medicine; Visit Provider Internal Medicine | DX: R00.1 Bradycardia, unspecified (principal) | CPT/HCPCS: 93010 ==

== ENCOUNTER → 2025-06-02 15:42 | Outpatient (BNV) | payer OTHER, SELFPAY | PROVIDERS: Admitting Provider Internal Medicine; Emergency Provider Emergency Medicine Emergency Medical Services; PCP Internal Medicine; Visit Provider Student in an Organized Health Care Education/Training Program | DX: M19.012 Primary osteoarthritis, left shoulder (principal); M25.712 Osteophyte, left shoulder | CPT/HCPCS: 73030 ==

== ENCOUNTER 2025-06-02 17:11 | Outpatient (BNV) | payer OTHER, SELFPAY | END 2025-06-04 09:31 | PROVIDERS: Admitting Provider Internal Medicine; Emergency Provider Emergency Medicine Emergency Medical Services; PCP Internal Medicine; Visit Provider Radiology Diagnostic Radiology | DX: N17.9 Acute kidney failure, unspecified (principal); N28.1 Cyst of kidney, acquired | CPT/HCPCS: 76775 ==

== ENCOUNTER → 2025-06-02 17:11 | Outpatient (BNV) | payer OTHER, SELFPAY | PROVIDERS: Admitting Provider Internal Medicine; Emergency Provider Emergency Medicine Emergency Medical Services; PCP Internal Medicine; Visit Provider Internal Medicine | DX: E87.1 Hypo-osmolality and hyponatremia (principal); I10 Essential (primary) hypertension | CPT/HCPCS: 99222; 99232; 99233 ==